=== PATIENT | female | born 1940 | race Caucasian/White ===

== ENCOUNTER 2020-06-13 16:13 | Inpatient (IN) | payer MEDICARE, BC, SELFPAY ==
[2020-06-13] VITALS (17 sets, daily range): BP systolic 130–172; BP diastolic 66–83; PULSE 72–88; RESP 13–22; TEMP 36.4–37; O2SAT 89–98; BMI 19.3
--- NOTE | ~2020-06-13 | XR_ITS ---
XR hip LT 2V w AP pelvis DATE: 06/13/2020 18:45 INDICATION: Fall. Left hip pain TECHNIQUE: AP pelvis. AP and crosstable lateral views of left hip COMPARISON: None FINDINGS: Diffuse osteopenia. Vertebroplasty at L4. Degenerative disc disease of the lumbar spine. The pubic symphysis and sacroiliac joints are intact. No pelvic fracture or bone destruction is evide nt. Compression screw and 20 right of each proximal femur. No recent hip fracture or evidence of dislocat ion. IMPRESSION: Bilateral proximal femoral compression screw and intramedullary radha devices Diffuse osteopenia No recent pelvic fracture or hip fracture or dislocation is evident Reviewed, dictated and finalized at location A.
--- NOTE | ~2020-06-13 | XR_ITS ---
XR chest 1V DATE: 06/13/2020 18:45 INDICATION: Fall. Weakness. TECHNIQUE: AP chest COMPARISON: 08/23/2013 portable AP chest FINDINGS: Severe bilateral glenohumeral osteoarthritis. Diffuse osteopenia. Lateral left seventh rib fracture of undetermined age is suggested. Vertebroplasty at an upper lumbar vertebra. Heart size is within normal range. There is aortic calcification and unfolding. No hilar or mediastin al enlargement. No pulmonary infiltrate or consolidation, pleural effusion or pulmonary vascular amando estion or pneumothorax. IMPRESSION: No active cardiopulmonary disease Reviewed, dictated and finalized at location A.
--- NOTE | ~2020-06-13 | XR_ITS ---
XR chest 1V portable 06/14/2020 02:08 Indication: Pulmonary congestion Procedure: AP portable chest Comparison: Comparison to multiple prior studies sequentially, with oldest reviewed study dated 08/04. Findings: Heart size mildly enlarged. No focal air space disease, pulmonary edema, pleural effusion o r suspected pneumothorax. Mild pulmonary vascular congestion. There are advanced degenerative changes of the glenohumeral joints. No acute osseous abnormality. There is an upper lumbar compression fract ure with vertebroplasty change. Impression: 1: Mild cardiomegaly with pulmonary vascular congestion. Reviewed, dictated and finalized at location A. Impression: 1: Mild cardiomegaly with pulmonary vascular congestion.
--- NOTE | ~2020-06-13 | CT_ITS ---
EXAMINATION: CT cervical spine wo con DATE: 06/13/2020 18:23 INDICATION: Fall. Neck and shoulder pain. TECHNIQUE: Computed tomography (CT) of the cervical spine was performed without intravenous contrast. Automated exposure control and iterative reconstruction technique were employed. Exam dose: 106.59 mGy-cm total exam DLP. COMPARISON: CT facial and cervical spine FINDINGS: Diffuse osteopenia. C1 and C2 are normally aligned and the odontoid process is intact. No recent fracture of the cervical spine is evident. There is moderate chronic anterior wedging of T1, unchanged since 03/01/2017, consistent with old comp ression fracture. There is minimal posterior subluxation at C3-4 and C4-5. There is minimal anterolisthesis at C6-7. There is degenerative change at the apophyseal joints throughout the cervical spine. IMPRESSION: Diffuse osteopenia Chronic compression fracture of T1, stable since 02/21/2017 No recent fracture Degenerative changes Reviewed, dictated and finalized at Location A. Reviewed, dictated and finalized at location A.
--- NOTE | ~2020-06-13 | XR_ITS ---
XR knee LT 3V DATE: 06/13/2020 18:45 INDICATION: Generalized left knee pain TECHNIQUE: 3 views including crosstable lateral COMPARISON: None FINDINGS: There is tricompartment osteoarthritis, most pronounced at the patellofemoral compartment. There is mild chondrocalcinosis. Diffuse osteopenia. No fracture, dislocation, periosteal reaction or bone destruction is evident. Multiple posterior calcified loose bodies are noted at the knee joint. No fracture, dislocation, joint effusion, periosteal reaction or bone destruction is evident. Arterial calcification. IMPRESSION: Tricompartment osteoarthritis Chondrocalcinosis Multiple radiopaque foreign bodies of the knee joint Diffuse osteopenia Reviewed, dictated and finalized at location A.
--- NOTE | ~2020-06-13 | CT_ITS ---
EXAMINATION: CT brain wo con DATE: 06/13/2020 18:23 INDICATION: Fall. Head injury. Neck and shoulder pain. TECHNIQUE: Computed tomography (CT) of the head was performed without intravenous contrast. The mA wa s adjusted according to patient size. Iterative reconstruction technique was employed. Exam dose: 60 5.33 mGy-cm total exam DLP. COMPARISON: 03/01/2017 CT brain FINDINGS: Small chronic left cerebellar hemispheric infarct is stable since 02/21/2017. Cerebral atherosclerosis and chronic small vessel ischemic changes of the cerebral white matter. Moderate central and cortical cerebral and cerebellar atrophy. No intracranial mass lesion or hemorrhage, midline shift or mass effect or recent cerebrovascular acc ident is detected. No subdural or epidural hematoma. No fracture or bone destruction of the cranial vault. Included paranasal sinuses and mastoid air cell s are unremarkable. IMPRESSION: Chronic small left cerebellar hemispheric infarct Cerebral atherosclerosis and chronic small vessel ischemic changes of the cerebral white matter No acute intracranial finding or significant change since 02/21/2017 Reviewed, dictated and finalized at Location A. Reviewed, dictated and finalized at location A. IMPRESSION: Chronic small left cerebellar hemispheric infarct Cerebral atherosclerosis and chronic small vessel ischemic changes of the cereb ral white matter No acute intracranial finding or significant change since 02/21/2017
--- NOTE | 2020-06-13 16:50 | PC.NURSE ---
patient brought to this ED by EMS after reported unwitnessed ground level fall today at the assisted living. see triage notes. c/o right shoulder pain. does have mild bilateral hip pain. no deformities seen. (+)PMS. moves all extremities. patient also reportedly fell yesterday. per EMS patient has slipped out of her chair to the floor both yesterday and today. denies head injury. denies LOC. no wounds seen. unsure patient's baseline mental status. some confusion per EMS. assessments documented. on monitor. side rails up x 2. waiting for further orders from provider.
--- NOTE | 2020-06-13 17:23 | ECG_ITS ---
Measurements Intervals [place] Rate: 70 P: 60 MA: 154 QRS: 28 QRSD: 81 T: 48 QT: 385 QTc: 418 Interpretive Statements SINUS RHYTHM EARLY PRECORDIAL R/S TRANSITION BORDERLINE ST-T WAVE ABNORMALITY- ANT/INF LEADS BASELINE ARTIFACT- I, II, AVR, V4-V6 BORDERLINE ECG Electronically Signed On 06-13-2020 18:18:11 CDT by Jacob Solomon D.O.
--- NOTE | 2020-06-13 17:28 | ED.FALL ---
HPI - Fall General Chief Complaint: Fall Stated Complaint: fall/right shoulder pain Time Seen by Provider: 06/13/20 16:36 Source: patient, family and EMS History of Present Illness HPI Narrative: Patient is 80 years old white female, assisting living, had 3 falls over the last 24 hours. Complaining of left hip pain, Here patient told me that she was trying to get some help, nobody answered her call , she slipped off a chair to go down to the floor and fell.. The above story per patient daughter who came with her. The daughter stating me that patient been weak with a shuffling gait for years, uses a cane for walking, and have very bad bones all over her body severe advanced arthritis of the shoulders and hips, possible shoulder replacement in the future. Patient denies any fever, chills, nausea, vomiting, headache or back pain. Patient had recent kyphoplasty, 2 months ago. Currently denying any back pain. Related Data Home Medications Medication Instructions Recorded Confirmed aripiprazole mg HS 06/13/20 azelastine INTRANASAL BID 06/13/20 camphor-methyl salicyl-menthol patch TOPICAL BID 06/13/20 [Salonpas] carboxymethylcellulose sodium drp 06/13/20 [Refresh] misoprostol mcg DAILY 06/13/20 olanzapine mg HS 06/13/20 pseudoephedrine-guaifenesin tablet PO 06/13/20 [Mucinex D] tramadol mg TID PRN 06/13/20 Allergies Allergy/AdvReac Type Severity Reaction Status Date / Time alendronate sodium Allergy Unknown Unknown Verified 06/13/20 16:59 codeine Allergy Unknown Unknown Verified 06/13/20 16:59 azithromycin Allergy Unknown Verified 06/13/20 17:01 NSAIDS (Non-Steroidal AdvReac Other Verified 06/13/20 17:01 Anti-Inflamma Review of Systems Review of Systems: Narrative: CONSTITUTIONAL: Denies fever, chills, or sweats. EYES: Denies visual changes, redness, or discharge. ENT: Denies rhinorrhea, congestion, sore throat, or otalgia. CARDIOVASCULAR: Denies chest pain, palpitations, or edema. RESPIRATORY: Denies cough or dyspnea. GASTROINTESTINAL: Denies abdominal pain, nausea, vomiting, or diarrhea. GENITOURINARY: Denies dysuria or hematuria. SKIN: Denies rash or itching. MUSCULOSKELETAL: Denies back pain, NEUROLOGIC: Denies headache, numbness, or weakness. PSYCHIATRIC: Denies anxiety or depression. PMFSH Past Medical History Medical History (Updated 06/13/20 @ 18:36 by Zulema Rabago MD) Osteoarthritis Social History Social History (Updated 06/13/20 @ 17:37 by Zulema Rabago MD) Social History: Patient does not smoke or drink or use illicit drugs Second hand tobacco smoke exposure: No Alcohol intake: never Exam Narrative: Exam Narrative: General appearance: Well-developed, well-nourished, looks ill and weak all over. Skin: Normal color Head: Normocephalic, nontraumatic Eyes: Clear conjunctiva ENT: Oropharynx normal, ears normal, nose normal Neck: Supple, nontender Chest and respiratory: Airway patent, no respiratory distress, no accessory muscle use Heart: Regular rate/rhythm Abdomen: Soft, nontender, no organomegaly, quiet bowel sounds Vascular: Normal peripheral pulses, normal capillary refill. Musculoskeletal: Limited range of motion of both shoulders, no deformity or new aches or pain., Slight left hip reduced range of motion Neurologic: Alert and oriented ?3, [employer] is normal as tested, no gross motor deficit Course Course Emergency Course: Stable Consultations Consultation #1: Lillie scott nurse practitioner of the hospitalist Date: 06/13/20 Time: 19:01 Vital Signs Vital signs: Vital Signs Pulse Rate 81 06/13/20 16:22 Respiratory Rate 20 06/13/20 16:22 Pulse Oximetry 90 06/13/20 16:22
[2020-06-13 17:54] LABS: Basophils Percent Auto 0.3 % (0.2-1.2); Hemoglobin 11.7 g/dL (12.0-15.0); Immature Granulocyte Absolute 0.03 K/mm3 (0.00-0.031); Immature Granulocyte Percent A 0.5 % (0-0.5); Lymphocytes Absolute Auto 0.65 K/mm3 (0.9-3.2); Lymphocytes Percent Auto 11.3 % (18.3-44.2); Mean Corpuscular HGB Conc 32.5 g/dl (32-36); Mean Corpuscular Hemoglobin 32.2 pg (26-34); Mean Corpuscular Volume 99.2 fl (80-100); Mean Platelet Volume 9.9 fl (7.4-10.4); Monocytes Absolute Auto 0.7 K/mm3 (0.1-0.6); Monocytes Percent Auto 11.8 % (2.6-8.5); Neutrophils Absolute Auto 4.4 K/mm3 (1.3-6.7); Neutrophils Percent Auto 76.1 % (45.5-73.1); Platelet Count Result 207 k/mm3 (150-375); Red Blood Count 3.63 M/mm3 (4.2-5.4); White Blood Count 5.7 K/mm3 (4.5-10.0)
[2020-06-13] MEDS: SODIUM CHLORIDE 0.9% IV 1,000 ML 999 ML IV CONT (17:54)
[2020-06-13 18:03] LABS: Add Urine Microscopic? YES; Appearance Urine Clear (Clear); Bilirubin Urine Negative (Negative); Blood Urine 1+ (Negative); Color Urine Yellow (Yellow); Glucose Urine UA Negative (Negative); Ketones Urine Negative (Negative); Leukocyte Esterase Ur Negative LEU/UL (Negative); Mucus Urine Rare /lpf; Nitrate Urine Positive (Negative); Protein Urine Negative (Negative); RBC Urine 0-2 /hpf (0-2); Specific Grav Ur 1.013 (1.001-1.035); Squamous Epithelial Cell Urine Rare /hpf (Few); Urobilinogen Urine Negative mg/dL (<2.0); WBC Urine 0-3 /hpf
--- NOTE | 2020-06-13 18:03 | PC.NURSE ---
patient resting on stretcher. Urine collected by straight cath. SL inserted. labs drawn. IVF started. patient repositioned in bed. has depends on. 2 warm blankets given side rails up x 2. family member in room.
[2020-06-13 18:06] LABS: Alanine Aminotransferase 11 U/L (4-35); Alkaline Phosphatase 76 U/L (38-126); Anion Gap 7 mmol/L (8-16); Aspartate Amino Transferase 31 U/L (14-36); Bilirubin,Total 0.3 mg/dL (0.2-1.3); Blood Urea Nitrogen 17 mg/dL (7-17); Calcium 8.8 mg/dL (8.4-10.2); Carbon Dioxide 28 mmol/L (22-30); Chloride 109 mmol/L (98-107); Estimated CRCL calculation 40 ml/min; Estimated Glomerular Filt Rate > 60; Glucose 97 mg/dL (65-105); Sodium 144 mmol/L (137-145)
--- NOTE | 2020-06-13 18:08 | PC.NURSE ---
patient to CT scan now
--- NOTE | 2020-06-13 18:10 | PC.NURSE ---
patient in CT now. family member aware.
--- NOTE | 2020-06-13 18:52 | PC.NURSE ---
patient belongings list done with patient's daughter. patient's dentures, glasses and walker are at her home. daughter is taking jewelry and assistance button with her. clothing given to daughter.
[2020-06-13] MEDS: SODIUM CHLORIDE 0.9% IV 1,000 ML 100 ML IV CONT (20:31)
--- NOTE | 2020-06-13 21:39 | ADMGEN ---
This patient, Heidy Easley, was admitted to Medical Room 241-01 on 06/13/2020 @1950. Patient/family oriented to hospital policies and general routines including ID bracelet, bed and alarms, visiting hours, pain management, procedures, bathroom and other care routines, personal items, smoking policy, room service/diet, and visiting hours. Valuables list has been completed. Information on how to activate the Rapid Response Team has been discussed. Patient/Family are encouraged to report perceived risks to care and to ask questions if they do not understand what they are told or what they should do.
--- NOTE | 2020-06-14 01:46 | PM.IMHP ---
H&P: HPI History of Present Illness Date/Time: 06/14/20 01:46 Chief complaint: Falls, UTI, NH Placement, PT Evaluation Narrative: This is a demented 78 year old female who likely has chronic heart failure as she is treated with lasix presented to the hospital yesterday with a complaint of #3 falls over the past day. She was complianing of left hip pain in the ER. Apparently the patient slipped off of a chair when she was calling out for help and no one came to help her. The patient is currently residing at an assisted living facility and her daughter had verbalized to the ER staff yesterday that she wanted to have the patient placed in a long-term. On my encounter with the patient there is no family present and the patient is only oriented to herself. When I ask her why she is here, she says, I don't know. The patient has no complaints at this time and denies any pain or other symptoms. Overall the patient is a very poor historian. Routine labs demonstrated an abnormal urinalysis and the patient was given a dose of IV antibiotics in the ER. She was started on IV fluids and on my encounter the patient has diffuse bilateral crackles. Review of Systems Review of Systems: All systems reviewed & are unremarkable except as noted in HPI and below PMFSH Past Medical History Medical History Osteoarthritis Social History Social History Social History: Patient does not smoke or drink or use illicit drugs Smoking status: Former smoker Second hand tobacco smoke exposure: No Alcohol intake: unknown Substance use: never Substance use type: does not use Spiritual care concerns: No Comments Past medical/surgical/family/ and social histories are not obtainable from the patient due to her dementia. Meds Home Medications and Allergies Home Medications Medication Instructions Recorded Confirmed Type acetaminophen 1,000 mg PO QID PRN 06/13/20 06/13/20 History aripiprazole [Abilify] 2 mg PO HS 06/13/20 06/13/20 History azelastine 137 mcg INTRANASAL BID 06/13/20 06/13/20 History benzonatate 200 mg PO TID PRN 06/13/20 06/13/20 History bisacodyl [address] DAILY PRN 06/13/20 06/13/20 History camphor-menthol [Biofreeze] 1 applic TOPICAL PRN PRN 06/13/20 06/13/20 History capsaicin [Salonpas-Hot] 1 patch TOPICAL DAILY 06/13/20 06/13/20 History carboxymethylcellulose sodium 1 drp OPHTHALMIC (EYE) BID 06/13/20 06/13/20 History [Refresh Tears] cholecalciferol (vitamin D3) 25 mcg PO DAILY 06/13/20 06/13/20 History [Vitamin D3] clonazepam 0.5 mg PO BID 06/13/20 06/13/20 History dextromethorphan-guaifenesin 1 tablet PO Q12H PRN 06/13/20 06/13/20 History [Mucinex DM] furosemide 40 mg PO DAILY 06/13/20 06/13/20 History latanoprost 1 drp OPHTHALMIC (EYE) HS 06/13/20 06/13/20 History loratadine 10 mg PO DAILY 06/13/20 06/13/20 History methyl salicylate-menthol [Muscle 1 applic TOPICAL BID PRN 06/13/20 06/13/20 History Rub Cream] misoprostol [Cytotec] 200 mcg PO DAILY 06/13/20 06/13/20 History olanzapine [Zyprexa] 2.5 mg PO HS 06/13/20 06/13/20 History tsnncjaok-tphsdteb-fugrp-w.pet 1 applic TOPICAL PRN PRN 06/13/20 06/13/20 History [Hemorrhoidal Cream] tramadol [Ultram] 50 mg PO QID PRN 06/13/20 06/13/20 History Allergies Allergy/AdvReac Type Severity Reaction Status Date / Time alendronate sodium Allergy Unknown Unknown Verified 06/14/20 03:07 codeine Allergy Unknown Unknown Verified 06/14/20 03:07 azithromycin Allergy Unknown Verified 06/14/20 03:07 NSAIDS (Non-Steroidal AdvReac Other Verified 06/14/20 03:07 Anti-Inflamma Vital Signs Vital Signs - 24 hr 06/13/20 16:22 06/13/20 16:26 06/13/20 16:30 Temperature 36.8 C Pulse Rate 81 76 Respiratory Rate 20 22 H 15 Blood Pressure Pulse Oximetry 90 89 L 94 06/13/20 16:31 06/13/20 16:45 06/13/20 16:46 Temperature 37.0 C Pul
[2020-06-14] MEDS: FUROSEMIDE INJ 40 MG/4 ML VIAL IV PUSH (02:43)
[2020-06-14] MEDS: LATANOPROST 0.005% OP SOLN 2.5 ML BTL 1 DROP EACH EYE ×2 (04:42→20:21)
[2020-06-14 06:00] VITALS: BP 150/69; PULSE 69; RESP 22; TEMP 36.9; O2SAT 92
[2020-06-14 07:05] LABS: Thyroid Stimulating Hormone Reflex 0.685 uIU/mL (0.465-4.68)
[2020-06-14 07:21] LABS: Folic Acid 5.7 ng/mL (2.76->20)
[2020-06-14 07:52] LABS: Hematocrit 34.6 % (37.0-47.0); Hemoglobin 10.8 g/dL (12.0-15.0); Mean Corpuscular HGB Conc 31.2 g/dl (32-36); Mean Corpuscular Hemoglobin 31.8 pg (26-34); Mean Corpuscular Volume 101.8 fl (80-100); Mean Platelet Volume 10.3 fl (7.4-10.4); Platelet Count Result 194 k/mm3 (150-375)
[2020-06-14 07:55] LABS: Anion Gap 5 mmol/L (8-16); Blood Urea Nitrogen 14 mg/dL (7-17); CRP 3.9 mg/dL (<1.0); Calcium 8.3 mg/dL (8.4-10.2); Carbon Dioxide 28 mmol/L (22-30); Chloride 109 mmol/L (98-107); Estimated CRCL calculation 46 ml/min; Estimated Glomerular Filt Rate > 60; Glucose 81 mg/dL (65-105); Potassium 3.5 mmol/L (3.4-5.0); Sodium 142 mmol/L (137-145)
[2020-06-14 09:25] VITALS: BMI 10.0
--- NOTE | 2020-06-14 10:59 | PCSTNOTE ---
Bedside Swallow Evaluation This pt was seen for a bedside swallowing evaluation after witnessed coughing on thin liquids (nurse tech reported feeding her thin liquid via cup as she couldn't lift the cup herself). The pt is very weak and moves slowly. She reports that she doesn't have the strength to drink from a straw. She is edentulous but reports that she has dentures at home. She demonstrated Left sided facial weakness and reports that she always has a messy mouth, indicating anterior spillage. She also has poor oral care, limited tongue strength and ROM, and poor labial strength. The pt was seated upright in a chair and given 3ml, 5ml, and uncontrolled thin liquid via spoon and cup. No clinical signs of aspiration were noted. The pt was able to hold the cup and bring it to her mouth, but drank very slowly. Trials of puree were within normal limits but left some oral residue. A cracker was dipped in water to soften it due to her general weakness and lack of teeth; this solid trial was within normal limits but left oral residue. The oral residue could be contributing to her poor oral hygiene. It is recommended that the pt receive an oral diet of puree food (4) and thin liquids (0). The pt will require setup and feeding assistance. This diet may be upgraded if the pt's dentures arrive and her strength improves. The following precautions should be taken when eating/drinking: -no straws -sit upright during and after meals -small bites/sips -check for pocketing food and alternate liquids and solids to clear residue Therapy should focus on the following: -bolus control exercises -tongue ROM exercises -lip strengthening exercises
[2020-06-14] MEDS: CHOLECALCIFEROL 1,000 UNITS TABLET 1000 UNITS PO (12:02)
--- NOTE | 2020-06-14 12:11 | P.PNIM_ITS ---
Progress Note: A&P Assessment and Plan (1) Multiple falls: Code(s): R29.6 - Repeated falls Status: Acute Assessment and Plan: * She likely requires NH placement due to advanced debility and schizophrenia * However, polypharmacy is extant (2 antipsychotics, 2 antihistamines, 1 benzodiazepine, 1 narcotic, 1 diuretic) * A trial of medication reduction is warranted * Monitor status on new regimen (2) Abnormal urinalysis: Code(s): R82.90 - Unspecified abnormal findings in urine Status: Acute Assessment and Plan: * UTI unlikely based on U/a findings * Ceftriaxone started empirically 06/13 * C/s pending (3) Pulmonary congestion: Code(s): R09.89 - Other specified symptoms and signs involving the circulatory and respiratory systems Status: Acute Assessment and Plan: * Clear to exam 06/14 * May have been a consequence of IVF that resolved with IV furosemide (4) Dementia: Qualifiers: Dementia type: unspecified type Dementia behavioral disturbance: without behavioral disturbance Qualified Code(s): F03.90 - Unspecified dementia without behavioral disturbance Code(s): F03.90 - Unspecified dementia without behavioral disturbance Status: Acute Assessment and Plan: * Cognitive impairment is likely a consequence of her schizophrenia and polypharmacy * Clinically she does not have true dementia (5) Hypertension: Qualifiers: Hypertension type: unspecified Qualified Code(s): I10 - Essential (primary) hypertension Code(s): I10 - Essential (primary) hypertension Status: Acute Assessment and Plan: * No prior hx * Possibly due to volume overload and resolved after IV furosemide (6) Schizophrenia: Qualifiers: Schizophrenia type: unspecified Qualified Code(s): F20.9 - Schizophrenia, unspecified Code(s): F20.9 - Schizophrenia, unspecified Status: Acute Assessment and Plan: * Hx of visual and auditory hallucinations, controlled by medication * Paranoid ideation noted (7) Anemia: Code(s): D64.9 - Anemia, unspecified Status: Acute Assessment and Plan: * Decline from previously * B12 low normal range, check MMA * Check stool for blood, iron/tibc (8) Osteoarthritis: Code(s): M19.90 - Unspecified osteoarthritis, unspecified site Status: Acute Assessment and Plan: * Severe with moderately severe pain in right shoulder and associated adhesive capsulitis * Avoid narcotics * Trial of scheduled acetaminophen, PT/OT Subjective Date/time seen: 06/14/20 12:11 Interval history: 06/14: I saw Kt in a vision in 1974 and I've been schizophrenic ever since. But I'm not. My was a son of a bitch and lied about me to my family. Admitted 06/13 due to falling at assisted living. Unable to care for self. No teeth with her. But able to swallow thin liquids and pureed foods. Chronic severe right shoulder pain. Denied cp or sob or edema or syncope. Denied focal weakness or numbness. Denied gi/gu issues or abnormal bleeding. Review of Systems Review of Systems: All systems reviewed & are unremarkable except as noted in HPI and below Exam Narrative: Exam Narrative: HEENT: EOMI, PERRL, sclerae nonicteric, pharyngeal mucosa pink and intact NECK: No JVD, adenopathy, or thyromegaly CHEST: Clear to auscultation. Normal effort. HEART: NL S1/S2, regular, no murmur ABDOMEN: BS+, soft, nonte
--- NOTE | 2020-06-14 12:11 | PM.IMPN ---
Progress Note: A&P Assessment and Plan (1) Multiple falls: Code(s): R29.6 - Repeated falls Status: Acute Assessment and Plan: She likely requires NH placement due to advanced debility and schizophrenia However, polypharmacy is extant (2 antipsychotics, 2 antihistamines, 1 benzodiazepine, 1 narcotic, 1 diuretic) A trial of medication reduction is warranted Monitor status on new regimen (2) Abnormal urinalysis: Code(s): R82.90 - Unspecified abnormal findings in urine Status: Acute Assessment and Plan: UTI unlikely based on U/a findings Ceftriaxone started empirically 06/13 C/s pending (3) Pulmonary congestion: Code(s): R09.89 - Other specified symptoms and signs involving the circulatory and respiratory systems Status: Acute Assessment and Plan: Clear to exam 06/14 May have been a consequence of IVF that resolved with IV furosemide (4) Dementia: Qualifiers: Dementia type: unspecified type Dementia behavioral disturbance: without behavioral disturbance Qualified Code(s): F03.90 - Unspecified dementia without behavioral disturbance Code(s): F03.90 - Unspecified dementia without behavioral disturbance Status: Acute Assessment and Plan: Cognitive impairment is likely a consequence of her schizophrenia and polypharmacy Clinically she does not have true dementia (5) Hypertension: Qualifiers: Hypertension type: unspecified Qualified Code(s): I10 - Essential (primary) hypertension Code(s): I10 - Essential (primary) hypertension Status: Acute Assessment and Plan: No prior hx Possibly due to volume overload and resolved after IV furosemide (6) Schizophrenia: Qualifiers: Schizophrenia type: unspecified Qualified Code(s): F20.9 - Schizophrenia, unspecified Code(s): F20.9 - Schizophrenia, unspecified Status: Acute Assessment and Plan: Hx of visual and auditory hallucinations, controlled by medication Paranoid ideation noted (7) Anemia: Code(s): D64.9 - Anemia, unspecified Status: Acute Assessment and Plan: Decline from previously B12 low normal range, check MMA Check stool for blood, iron/tibc (8) Osteoarthritis: Code(s): M19.90 - Unspecified osteoarthritis, unspecified site Status: Acute Assessment and Plan: Severe with moderately severe pain in right shoulder and associated adhesive capsulitis Avoid narcotics Trial of scheduled acetaminophen, PT/OT Subjective Date/time seen: 06/14/20 12:11 Interval history: 06/14: I saw Kt in a vision in 1974 and I've been schizophrenic ever since. But I'm not. My was a son of a bitch and lied about me to my family. Admitted 06/13 due to falling at assisted living. Unable to care for self. No teeth with her. But able to swallow thin liquids and pureed foods. Chronic severe right shoulder pain. Denied cp or sob or edema or syncope. Denied focal weakness or numbness. Denied gi/gu issues or abnormal bleeding. Review of Systems Review of Systems: All systems reviewed & are unremarkable except as noted in HPI and below Exam Narrative: Exam Narrative: HEENT: EOMI, PERRL, sclerae nonicteric, pharyngeal mucosa pink and intact NECK: No JVD, adenopathy, or thyromegaly CHEST: Clear to auscultation. Normal effort. HEART: NL S1/S2, regular, no murmur ABDOMEN: BS+, soft, nontender, no mass, no bruits EXTREMITIES: No cyanosis, edema, or clubbing NEUROLOGIC: CN intact and symmetric to inspection. MUSCULOSKELETAL: Tone and strength symmetric. Generalized weakness. Right shoulder with severe creps on passive ROM with pain and severely limited ROM. PSYCH: Alert. Oriented to person, place, and time. Inappropriate, somewhat blunted affect. Objective Data Vital Signs Vital Signs: Vital Signs - 24 hr 06/13/20 16:22 06/13/20 16:26 06/13/20 16:30 Temperat
[2020-06-14 14:00] VITALS: BP 137/61; PULSE 93; RESP 20; TEMP 37.6; O2SAT 92
[2020-06-14] MEDS: ACETAMINOPHEN 325 MG TABLET 650 MG PO ×2 (17:06→21:55)
[2020-06-14 20:31] VITALS: BP 150/57; PULSE 76; RESP 16; TEMP 36.6; O2SAT 90
[2020-06-15 03:23] VITALS: PULSE 70; O2SAT 86
[2020-06-15] MEDS: ACETAMINOPHEN 325 MG TABLET 650 MG PO ×2 (03:25→12:54)
[2020-06-15] MEDS: MENTHOL 10% / METHYL SALICYLATE 15% 57 GM TUBE 1 APPLIC TOPICAL (05:25)
[2020-06-15 05:39] VITALS: BP 111/51; PULSE 69; RESP 16; TEMP 36.7; O2SAT 95
[2020-06-15 05:41] LABS: Hematocrit 33.1 % (37.0-47.0); Hemoglobin 10.8 g/dL (12.0-15.0); Mean Corpuscular HGB Conc 32.6 g/dl (32-36); Mean Corpuscular Hemoglobin 31.7 pg (26-34); Mean Corpuscular Volume 97.1 fl (80-100); Mean Platelet Volume 10.1 fl (7.4-10.4); Platelet Count Result 191 k/mm3 (150-375); Red Blood Count 3.41 M/mm3 (4.2-5.4); Red Cell Distribution Width 12.7 % (11.5-14.5); White Blood Count 3.7 K/mm3 (4.5-10.0)
[2020-06-15 06:16] LABS: Iron 29 ug/dL (37-170)
[2020-06-15 06:18] LABS: Potassium 3.3 mmol/L (3.4-5.0)
[2020-06-15 06:21] LABS: Anion Gap 6 mmol/L (8-16); Blood Urea Nitrogen 14 mg/dL (7-17); Calcium 8.1 mg/dL (8.4-10.2); Carbon Dioxide 29 mmol/L (22-30); Chloride 107 mmol/L (98-107); Estimated CRCL calculation 53 ml/min; Estimated Glomerular Filt Rate > 60; Glucose 84 mg/dL (65-105); Sodium 142 mmol/L (137-145)
[2020-06-15 06:26] LABS: Percent Iron Saturation 12 % (20-50)
[2020-06-15] MEDS: CHOLECALCIFEROL 1,000 UNITS TABLET 1000 UNITS PO (08:35)
[2020-06-15] MEDS: CYANOCOBALAMIN INJ 1,000 MCG/ML VIAL 1000 MCG IM (08:39)
--- NOTE | 2020-06-15 09:33 | PCOTNOTE ---
Patient refused therapy, stating I just fell a couple days ago and need some time to recuperate.
[2020-06-15] MEDS: IRON SUCROSE COMPLEX 100 MG in SODIUM CHLORIDE 0.9% IV 50 ML 220 MG IVPB (10:03)
[2020-06-15 14:00] VITALS: BP 140/56; PULSE 75; RESP 16; TEMP 36.9; O2SAT 92
[2020-06-15 14:08] LABS: SARS-CoV-2 RNA PCR Positive
--- NOTE | 2020-06-15 14:22 | PM.IMPN ---
Progress Note: A&P Assessment and Plan (1) Multiple falls: Code(s): R29.6 - Repeated falls Status: Acute Assessment and Plan: She likely requires NH placement due to advanced debility and schizophrenia However, polypharmacy is extant (2 antipsychotics, 2 antihistamines, 1 benzodiazepine, 1 narcotic, 1 diuretic) A trial of medication reduction is warranted Monitor status on new regimen 06/15/20 14:22 Patient is 80 year old female resident of [facility] patient had slipped off her chair and on the floor was brought to the emergency department for further evaluation, patient with history of schizophrenia on several antipsychotic medication, patient is a very poor historian unable to provide any review of symptoms, is alert to herself, most likely her symptoms are stemming from polypharmacy, patient is quite anemic most likely secondary iron deficiency anemia as well as low vitamin B12, stool Hemoccult is pending, will give the patient Venofer 100 mg time 1, and will treat the patient for low vitamin B12, will have a PT OT evaluate the, patient family would like agree present to nursing as patient is not able to take care of herself. Although patient does not have any respiratory symptoms however patient is positive for COVID-19. we will place her under isolation and droplet precaution. currently patient has no fever and only required 1 L of oxygen will continue to monitor. (2) Abnormal urinalysis: Code(s): R82.90 - Unspecified abnormal findings in urine Status: Acute Assessment and Plan: patient clinically stable and was not started on any antibiotic. (3) Pulmonary congestion: Code(s): R09.89 - Other specified symptoms and signs involving the circulatory and respiratory systems Status: Acute Assessment and Plan: Clear to exam 06/14 May have been a consequence of IVF that resolved with IV furosemide (4) Dementia: Qualifiers: Dementia type: unspecified type Dementia behavioral disturbance: without behavioral disturbance Qualified Code(s): F03.90 - Unspecified dementia without behavioral disturbance Code(s): F03.90 - Unspecified dementia without behavioral disturbance Status: Acute Assessment and Plan: Cognitive impairment is likely a consequence of her schizophrenia and polypharmacy Clinically she does not have true dementia (5) Hypertension: Qualifiers: Hypertension type: unspecified Qualified Code(s): I10 - Essential (primary) hypertension Code(s): I10 - Essential (primary) hypertension Status: Acute Assessment and Plan: No prior hx Possibly due to volume overload and resolved after IV furosemide (6) Schizophrenia: Qualifiers: Schizophrenia type: unspecified Qualified Code(s): F20.9 - Schizophrenia, unspecified Code(s): F20.9 - Schizophrenia, unspecified Status: Acute Assessment and Plan: Hx of visual and auditory hallucinations, controlled by medication Paranoid ideation noted (7) Anemia: Code(s): D64.9 - Anemia, unspecified Status: Acute Assessment and Plan: Decline from previously B12 low normal range, check MMA Check stool for blood, iron/tibc (8) Osteoarthritis: Code(s): M19.90 - Unspecified osteoarthritis, unspecified site Status: Acute Assessment and Plan: Severe with moderately severe pain in right shoulder and associated adhesive capsulitis Avoid narcotics Trial of scheduled acetaminophen, PT/OT (9) COVID-19: Code(s): U07.1 - COVID-19 Status: Acute Assessment and Plan: currently patient is clinically stable does not show any obese sinus symptoms COVID-19, does not have any fever and only requiring 1 L of oxygen will continue to monitor and further recommendation to follow, will transfer patient to [place] and place the patient under isolation and droplet precaution
[2020-06-15 14:25] VITALS: BMI 19.3
[2020-06-15 16:00] VITALS: BP 150/54; PULSE 76; RESP 20; TEMP 37.1; O2SAT 95
[2020-06-15 20:50] VITALS: BP 142/63; PULSE 73; RESP 18; TEMP 36.6; O2SAT 93
[2020-06-15] MEDS: LATANOPROST 0.005% OP SOLN 2.5 ML BTL 1 DROP EACH EYE (21:22)
[2020-06-16] VITALS (7 sets, daily range): BP systolic 113–176; BP diastolic 53–82; PULSE 72–92; RESP 18–20; TEMP 36.7–38; O2SAT 91–97
[2020-06-16] MEDS: ACETAMINOPHEN 325 MG TABLET 650 MG PO ×3 (00:49→21:21)
[2020-06-16] MEDS: CHOLECALCIFEROL 1,000 UNITS TABLET 1000 UNITS PO (08:10)
[2020-06-16 10:14] LABS: Hematocrit 39.2 % (37.0-47.0); Hemoglobin 12.8 g/dL (12.0-15.0); Mean Corpuscular HGB Conc 32.7 g/dl (32-36); Mean Corpuscular Hemoglobin 32.5 pg (26-34); Mean Corpuscular Volume 99.5 fl (80-100); Mean Platelet Volume 10.2 fl (7.4-10.4); Platelet Count Result 185 k/mm3 (150-375); Red Blood Count 3.94 M/mm3 (4.2-5.4); Red Cell Distribution Width 12.6 % (11.5-14.5); White Blood Count 3.4 K/mm3 (4.5-10.0)
[2020-06-16 10:31] LABS: Alanine Aminotransferase 13 U/L (4-35); Albumin Level 3.6 g/dL (3.5-5.1); Alkaline Phosphatase 72 U/L (38-126); Anion Gap 6 mmol/L (8-16); Aspartate Amino Transferase 40 U/L (14-36); Bilirubin,Total 0.5 mg/dL (0.2-1.3); Blood Urea Nitrogen 11 mg/dL (7-17); CRP 2.2 mg/dL (<1.0); Calcium 8.6 mg/dL (8.4-10.2); Carbon Dioxide 33 mmol/L (22-30); Chloride 104 mmol/L (98-107); Estimated CRCL calculation 53 ml/min; Estimated Glomerular Filt Rate > 60; Glucose 92 mg/dL (65-105); Magnesium 2.2 mg/dL (1.6-2.3); Potassium 4.1 mmol/L (3.4-5.0); Sodium 143 mmol/L (137-145)
--- NOTE | 2020-06-16 14:03 | PCSTNOTE ---
The patient treatment was not able to be completed on 06/16/20 as patient exhibits poor ability to participate in direct, active oral motor exercises and will be discharged from direct ST services with physician permission.
--- NOTE | 2020-06-16 17:23 | PM.IMPN ---
Progress Note: A&P Assessment and Plan (1) Multiple falls: Code(s): R29.6 - Repeated falls Status: Acute Assessment and Plan: She likely requires NH placement due to advanced debility and schizophrenia However, polypharmacy is extant (2 antipsychotics, 2 antihistamines, 1 benzodiazepine, 1 narcotic, 1 diuretic) A trial of medication reduction is warranted Monitor status on new regimen Patient is 80 year old female [facility] patient had slipped off her chair and on the floor was brought to the emergency department for further evaluation, patient with history of schizophrenia on several antipsychotic medication, patient is a very poor historian unable to provide any review of symptoms, is alert to herself, most likely her symptoms are stemming from polypharmacy, patient is quite anemic most likely secondary iron deficiency anemia as well as low vitamin B12, stool Hemoccult is pending, will give the patient Venofer 100 mg time 1, and will treat the patient for low vitamin B12, will have a PT OT evaluate the, patient family would like agree present to nursing as patient is not able to take care of herself. Although patient does not have any respiratory symptoms however patient is positive for COVID-19. we will place her under isolation and droplet precaution. currently patient has no fever and only required 1 L of oxygen will continue to monitor. 06/16/20 17:23 currently patient is clinically stable does not show any obvious signs or symptoms COVID-19, does not have any fever and only requiring 1 L of oxygen, will reduce her oxygen to room air and monitor the patient does not have fever but is not require any oxygen 2 days discharge the patient back to nursing, patient with anemia most likely secondary to iron deficiency as well as vitamin B12 patient was supplement, once clinically stable patient will benefit from PT OT (2) Abnormal urinalysis: Code(s): R82.90 - Unspecified abnormal findings in urine Status: Acute Assessment and Plan: patient clinically stable and was not started on any antibiotic. (3) Pulmonary congestion: Code(s): R09.89 - Other specified symptoms and signs involving the circulatory and respiratory systems Status: Acute Assessment and Plan: Clear to exam 06/14 May have been a consequence of IVF that resolved with IV furosemide (4) Dementia: Qualifiers: Dementia type: unspecified type Dementia behavioral disturbance: without behavioral disturbance Qualified Code(s): F03.90 - Unspecified dementia without behavioral disturbance Code(s): F03.90 - Unspecified dementia without behavioral disturbance Status: Acute Assessment and Plan: Cognitive impairment is likely a consequence of her schizophrenia and polypharmacy Clinically she does not have true dementia (5) Hypertension: Qualifiers: Hypertension type: unspecified Qualified Code(s): I10 - Essential (primary) hypertension Code(s): I10 - Essential (primary) hypertension Status: Acute Assessment and Plan: No prior hx Possibly due to volume overload and resolved after IV furosemide (6) Schizophrenia: Qualifiers: Schizophrenia type: unspecified Qualified Code(s): F20.9 - Schizophrenia, unspecified Code(s): F20.9 - Schizophrenia, unspecified Status: Acute Assessment and Plan: Hx of visual and auditory hallucinations, controlled by medication Paranoid ideation noted (7) Anemia: Code(s): D64.9 - Anemia, unspecified Status: Acute Assessment and Plan: Decline from previously B12 low normal range, check MMA Check stool for blood, iron/tibc (8) Osteoarthritis: Code(s): M19.90 - Unspecified osteoarthritis, unspecified site Status: Acute Assessment and Plan: Severe with moderately severe pain in right shoulder and associated adhesive capsu
--- NOTE | 2020-06-16 19:27 | PC.NURSE ---
The sister of this patient was called back and was updated about her sisters current status and care for the day. All questions answered verbalized by the sister Renee.
[2020-06-16] MEDS: LATANOPROST 0.005% OP SOLN 2.5 ML BTL 1 DROP EACH EYE (20:38)
[2020-06-17] VITALS (8 sets, daily range): BP systolic 104–175; BP diastolic 55–64; PULSE 66–84; RESP 16–20; TEMP 36.4–37.2; O2SAT 90–94
--- NOTE | 2020-06-17 07:14 | PCOTNOTE ---
OT treatment unable to be completed 06/16/20.
[2020-06-17] MEDS: CHOLECALCIFEROL 1,000 UNITS TABLET 1000 UNITS PO (08:16)
[2020-06-17] MEDS: MENTHOL 10% / METHYL SALICYLATE 15% 57 GM TUBE 1 APPLIC TOPICAL ×2 (08:25→19:56)
[2020-06-17] MEDS: ACETAMINOPHEN 325 MG TABLET 650 MG PO ×2 (08:25→19:56)
--- NOTE | 2020-06-17 11:28 | PCSTNOTE ---
Speech Pathologist spoke with Dr. Escobedo who requested Speech Therapy to continue to ensure appropriate diet consistency and to attempt oral motor exercises for swallowing if indicated. Therapist agreed to continue ST and patient was seen this morning.
--- NOTE | 2020-06-17 12:20 | PCDIET ---
Nutrition Follow-Up Complete: Nutrition Diagnosis: Suboptimal oral intake related to decreased appetite as evidenced by intakes averaging around 30% of meals since admission. Nutrition Goal: Patient to consume 50% of meals/supplements or greater. Goal in progress. Patient consumed 30-50% of meals on 06/16/20. Spoke with nurse aid who reports patient consumed majority of breakfast tray today. Nurse aid to notify RD if patient does not consume Thrive supplement. Recommend continuing pureed diet, but would liberalize to regular/no restrictions to maximize intake. Last recorded weight is 51 kg. Recommend obtaining new weight. Bowel Motility: No documented BM as of yet. Dulcolax ordered prn. Labs Reviewed: Cr (0.6) Meds Noted: Vitamin D Additional Notes: No documented skin breakdown. Nutrition Monitoring and Evaluation: Follow up every 5 days.
[2020-06-17] MEDS: traMADol HCL (*CRX) 50 MG TABLET PO (14:32)
[2020-06-17 14:47] LABS: Methylmalonic Acid 223 nmol/L (87-318)
--- NOTE | 2020-06-17 16:06 | P.PNIM_ITS ---
Progress Note: A&P Assessment and Plan (1) Multiple falls: Code(s): R29.6 - Repeated falls Status: Acute Assessment and Plan: * She likely requires NH placement due to advanced debility and schizophrenia * However, polypharmacy is extant (2 antipsychotics, 2 antihistamines, 1 benzodiazepine, 1 narcotic, 1 diuretic) * A trial of medication reduction is warranted * Monitor status on new regimen Patient is 80 year old female [facility] patient had slipped off her chair and on the floor was brought to the emergency department for further evaluation, patient with history of schizophrenia on several antipsychotic medication, patient is a very poor historian unable to provide any review of symptoms, is alert to herself, most likely her symptoms are stemming from polypharmacy, patient is quite anemic most likely secondary iron deficiency anemia as well as low vitamin B12, stool Hemoccult is pending, will give the patient Venofer 100 mg time 1, and will treat the patient for low vitamin B12, will have a PT OT evaluate the, patient family would like agree present to nursing as patient is not able to take care of herself. Although patient does not have any respiratory symptoms however patient is positive for COVID-19. we will place her under isolation and droplet precaution. currently patient has no fever and only required 1 L of oxygen will continue to monitor. 06/17/20 16:06 currently patient is clinically stable does not show any obvious signs or symptoms COVID-19, does not have any fever and only requiring 1 L of oxygen, will reduce her oxygen to room air and monitor, If the patient does not have fever and is not requiring any oxygen 2 days discharge the patient back to nursing possibly on 06/18, patient with anemia most likely secondary to iron deficiency as well as vitamin B12 patient was supplement, once clinically stable patient will benefit from PT OT. will continue to monitor and reassess her tomorrow and plan. (2) Abnormal urinalysis: Code(s): R82.90 - Unspecified abnormal findings in urine Status: Acute Assessment and Plan: * patient clinically stable and was not started on any antibiotic. (3) Pulmonary congestion: Code(s): R09.89 - Other specified symptoms and signs involving the circulatory and respiratory systems Status: Acute Assessment and Plan: * Clear to exam on 06/14 * May have been a consequence of IVF that resolved with IV furosemide (4) Dementia: Qualifiers: Dementia type: unspecified type Dementia behavioral disturbance: without behavioral disturbance Qualified Code(s): F03.90 - Unspecified dementia without behavioral disturbance Code(s): F03.90 - Unspecified dementia without behavioral disturbance Status: Acute Assessment and Plan: * Cognitive impairment is likely a consequence of her schizophrenia and polypharmacy * Clinically she does not have true dementia (5) Hypertension: Qualifiers: Hypertension type: unspecified Qualified Code(s): I10 - Essential (primary) hypertension Code(s): I10 - Essential (primary) hypertension Status: Acute Assessment and Plan: * No prior hx * Possibly due to volume overload and resolved after IV furosemide (6) Schizophrenia: Qualifiers: Schizophrenia type: unspecified Qualified Code(s): F20.9 - S chizophrenia, unspecified Code(s): F20.9 - Schizophrenia, unspecified Status: Acute Assessment and Plan: * Hx of visual and auditory hallucinations, controlled by medication * Paranoid ideation noted
--- NOTE | 2020-06-17 16:44 | PM.DS ---
DS: Admitting Diagnosis Admitting Diagnosis Admitting Diagnosis: Falls, UTI, NH Placement, PT Evaluation DS: Discharge Diagnosis Discharge Diagnosis (1) Multiple falls: Code(s): R29.6 - Repeated falls Status: Acute Assessment and Plan: She likely requires NH placement due to advanced debility and schizophrenia However, polypharmacy is extant (2 antipsychotics, 2 antihistamines, 1 benzodiazepine, 1 narcotic, 1 diuretic) A trial of medication reduction is warranted Monitor status on new regimen Patient is 80 year old female [facility] patient had slipped off her chair and on the floor was brought to the emergency department for further evaluation, patient with history of schizophrenia on several antipsychotic medication, patient is a very poor historian unable to provide any review of symptoms, is alert to herself, most likely her symptoms are stemming from polypharmacy, patient is quite anemic most likely secondary iron deficiency anemia as well as low vitamin B12, stool Hemoccult is pending, will give the patient Venofer 100 mg time 1, and will treat the patient for low vitamin B12, will have a PT OT evaluate the, patient family would like agree present to nursing as patient is not able to take care of herself. Although patient does not have any respiratory symptoms however patient is positive for COVID-19. we will place her under isolation and droplet precaution. currently patient has no fever and only required 1 L of oxygen will continue to monitor. 06/17/20 16:06 currently patient is clinically stable does not show any obvious signs or symptoms COVID-19, does not have any fever and only requiring 1 L of oxygen, will reduce her oxygen to room air and monitor, If the patient does not have fever and is not requiring any oxygen 2 days discharge the patient back to nursing possibly on 06/18, patient with anemia most likely secondary to iron deficiency as well as vitamin B12 patient was supplement, once clinically stable patient will benefit from PT OT. will continue to monitor and reassess her tomorrow and plan. (2) Abnormal urinalysis: Code(s): R82.90 - Unspecified abnormal findings in urine Status: Acute Assessment and Plan: patient clinically stable and was not started on any antibiotic. (3) Pulmonary congestion: Code(s): R09.89 - Other specified symptoms and signs involving the circulatory and respiratory systems Status: Acute Assessment and Plan: Clear to exam on 06/14 May have been a consequence of IVF that resolved with IV furosemide (4) Dementia: Qualifiers: Dementia type: unspecified type Dementia behavioral disturbance: without behavioral disturbance Qualified Code(s): F03.90 - Unspecified dementia without behavioral disturbance Code(s): F03.90 - Unspecified dementia without behavioral disturbance Status: Acute Assessment and Plan: Cognitive impairment is likely a consequence of her schizophrenia and polypharmacy Clinically she does not have true dementia (5) Hypertension: Qualifiers: Hypertension type: unspecified Qualified Code(s): I10 - Essential (primary) hypertension Code(s): I10 - Essential (primary) hypertension Status: Acute Assessment and Plan: No prior hx Possibly due to volume overload and resolved after IV furosemide (6) Schizophrenia: Qualifiers: Schizophrenia type: unspecified Qualified Code(s): F20.9 - Schizophrenia, unspecified Code(s): F20.9 - Schizophrenia, unspecified Status: Acute Assessment and Plan: Hx of visual and auditory hallucinations, controlled by medication Paranoid ideation noted (7) Anemia: Code(s): D64.9 - Anemia, unspecified Status: Acute Assessment and Plan: Decline from previously B12 low normal range, check MMA Check stool for blood, iron/tibc (8) Osteoarthrit
[2020-06-17] MEDS: LATANOPROST 0.005% OP SOLN 2.5 ML BTL 1 DROP EACH EYE (21:22)
[2020-06-18] VITALS: BP 127/66; PULSE 73; RESP 20; TEMP 36.7; O2SAT 95
[2020-06-18] MEDS: traMADol HCL (*CRX) 50 MG TABLET PO ×2 (01:47→18:27)
[2020-06-18 04:00] VITALS: BP 155/84; PULSE 78; RESP 20; TEMP 36.4; O2SAT 92
[2020-06-18 08:00] VITALS: BP 133/69; PULSE 73; RESP 18; TEMP 36.3; O2SAT 99
--- NOTE | 2020-06-18 08:24 | PCOTNOTE ---
OT treatment unable to be completed 06/17/20. Will continue with plan of care.
[2020-06-18] MEDS: CHOLECALCIFEROL 1,000 UNITS TABLET 1000 UNITS PO (08:56)
[2020-06-18 12:00] VITALS: BP 149/64; PULSE 78; RESP 16; TEMP 36.3; O2SAT 91
--- NOTE | 2020-06-18 15:37 | PC.NURSE ---
1515 attempted tp call report to [facility] called three times and was put on hold, they stated they have a new phone system, and having trouble with it all 3 calls were disconnected.
[2020-06-18 16:00] VITALS: BP 111/64; PULSE 84; RESP 18; TEMP 35.9; O2SAT 92
--- NOTE | 2020-06-18 16:10 | PC.NURSE ---
[address] to call [facility] and they did not answer phone, will try to call report again prior to discharge
--- NOTE | 2020-06-18 16:28 | PC.NURSE ---
Zaida called report given to
== END 2020-06-18 18:50 | DRG 56 ==
LOC: ANHED 19:16 → ANH2MED 19:27 → ANH3MEDSUR 06-17 07:51 → ANH2MED 06-19 13:44 → ANH3MEDSUR 06-19 13:44
PROVIDERS: Family Medicine; Internal Medicine; Admitting Provider Internal Medicine; Emergency Provider Emergency Medicine; PCP Family Medicine Adolescent Medicine; Visit Provider Family Medicine
DX: G31.84 Mild cognitive impairment of uncertain or unknown etiology (principal); U07.1 COVID-19; F20.0 Paranoid schizophrenia; T50.995A Adverse effect of other drugs, medicaments and biological substances, initial encounter; W01.0XXA Fall on same level from slipping, tripping and stumbling without subsequent striking against object, initial encounter; R53.81 Other malaise; M19.90 Unspecified osteoarthritis, unspecified site; R09.89 Other specified symptoms and signs involving the circulatory and respiratory systems; I11.0 Hypertensive heart disease with heart failure; I50.9 Heart failure, unspecified; R82.90 Unspecified abnormal findings in urine; D51.9 Vitamin B12 deficiency anemia, unspecified; D50.9 Iron deficiency anemia, unspecified; R29.6 Repeated falls; Z87.891 Personal history of nicotine dependence
CPT/HCPCS: 36415; 51701; 70450; 71045; 72125; 73502; 73562; 80048; 80053; 81001; 82607; 82746; 83540; 83550; 83735; 83921; 84443; 85025; 85027; 86140; 87635; 92507; 92526; 92610; 93005; 96361; 96365; 96372; 96375; 97110; 97116; 97162; 97166; 97530; 97535; 99285; A9270; C9803; G0378; J0131; J0696; J1756; J1940; J3420; J7030; U0003

== ENCOUNTER 2020-06-26 09:55 | Inpatient (IN) | payer MEDICARE, BC, SELFPAY ==
[2020-06-26] VITALS (12 sets, daily range): BP systolic 107–157; BP diastolic 53–80; PULSE 66–90; RESP 14–17; TEMP 36.3–37; O2SAT 92–100; BMI 18.6
--- NOTE | ~2020-06-26 | XR_ITS ---
XR chest 1V portable 06/26/2020 11:15 Indication: Shortness of breath. Covid-19 Procedure: AP portable chest Comparison: 06/14/2020 Findings: There are developing peripheral infiltrates of the lower lung zones. Heart size normal for technique. No pleural effusion or pneumothorax. There is atherosclerosis. Impression: 1: Developing peripheral infiltrates of the lower lung zones, compatible with pneumonia. Reviewed, dictated and finalized at location B. Impression: 1: Developing peripheral infiltrates of the lower lung zones, compatible with p neumonia.
--- NOTE | ~2020-06-26 | CT_ITS ---
EXAMINATION: CTA chest PE protocol DATE: 06/26/2020 12:13 INDICATION: Shortness of breath. TECHNIQUE: Computed tomography angiography (CTA) of the chest was performed with 200 mL Omnipaque-350 intravenous contrast timed to evaluate the pulmonary arteries. Coronal maximum intensity projection 3D-reconstructions were created by the technologist. Automated exposure control and iterative reconst ruction technique were employed. The dose-length product was 426 mGy-cm. COMPARISON: Chest CT 06/17/2012 FINDINGS: The lungs demonstrate motion artifact. There is mucous plugging in right lower lobe. There is mild dependent atelectasis bilaterally. The heart size is normal. There are coronary artery calcif ications. There are acute pulmonary emboli in right lower lobe and right middle lobe. There is right hilar lymphadenopathy with the largest node measuring 1.7 x 1.3 cm. There is calcified atherosclerosi s of the aorta and many of the other arteries. 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 There are chronic burst fractures of L1 and L2 with changes of vertebroplast y at L2. There are chronic compression fractures of T6 and T12. There is moderate thoracic spondylosi s. IMPRESSION: 1. Acute pulmonary emboli in right lower lobe and right middle lobe. I called this result to Vern stuart. 2. Mucous plugging in right lower lobe. 3. Right hilar lymphadenopathy, which may be reactive. Reviewed, dictated and finalized at location A. IMPRESSION: 1. Acute pulmonary emboli in right lower lobe and right middle lobe. I called this result to Vern Meyer. 2. Mucous plugging in right lower lobe. 3. Right hilar lymphadenopathy, which may be reactive.
--- NOTE | 2020-06-26 10:05 | ECG_ITS ---
Measurements Intervals [place] Rate: 79 P: 46 MO: 140 QRS: -4 QRSD: 79 T: 29 QT: 354 QTc: 407 Interpretive Statements SINUS RHYTHM LOW QRS VOLTAGE IN PRECORDIAL LEADS BORDERLINE T WAVE ABNORMALITY- ANTEROLAT/INF LEADS BASELINE ARTIFACT- I, II, III, AVR, AVL, AVF, V1-V6 BORDERLINE ECG Electronically Signed On 06-26-2020 10:47:04 CDT by Jacob Solomon D.O.
[2020-06-26 10:21] LABS: Alveolar/Arterial O2 Gradient 422.2 mmHg; Fractional Inspired Oxygen 80 %; HCO3 ABG 26.8 mEq/l (22.0-26.0); Oxygen Content ABG 17.1 %vol (16.0-22.0); Oxygen Saturation ABG 97.8 % (95.0-100.0); Oxyhemoglobin 96.7 % THb (90.0-100.0); PCO2 ABG 42.9 mmHg (35.0-45.0); PO2 ABG 103.2 mmHg (80.0-100.0); PO2 FiO2 Ratio Arterial Blood 1.29 %; Total Hemoglobin 12.5 g/dL (12.0-18.0); pH ABG 7.414 (7.350-7.450)
[2020-06-26 10:22] LABS: Device NON-REBREATHER MASK; Modified Allen's Test Pass; Site Drawn RIGHT RADIAL
[2020-06-26 10:37] LABS: Basophils Percent Auto 0.4 % (0.2-1.2); Eosinophils Absolute Auto 0.1 K/mm3 (0-0.3); Eosinophils Percent Auto 1.1 % (0-4.4); Hematocrit 36.8 % (37.0-47.0); Hemoglobin 11.9 g/dL (12.0-15.0); Immature Granulocyte Absolute 0.04 K/mm3 (0.00-0.031); Immature Granulocyte Percent A 0.6 % (0-0.5); Lymphocytes Absolute Auto 1.17 K/mm3 (0.9-3.2); Lymphocytes Percent Auto 16.2 % (18.3-44.2); Mean Corpuscular HGB Conc 32.3 g/dl (32-36); Mean Corpuscular Volume 95.8 fl (80-100); Mean Platelet Volume 9.7 fl (7.4-10.4); Monocytes Absolute Auto 0.8 K/mm3 (0.1-0.6); Monocytes Percent Auto 11.4 % (2.6-8.5); Neutrophils Absolute Auto 5.1 K/mm3 (1.3-6.7); Neutrophils Percent Auto 70.3 % (45.5-73.1); Platelet Count Result 298 k/mm3 (150-375); Red Blood Count 3.84 M/mm3 (4.2-5.4); Red Cell Distribution Width 12.3 % (11.5-14.5); White Blood Count 7.2 K/mm3 (4.5-10.0)
[2020-06-26 10:46] LABS: INR 1.1; Prothrombin Time 13.5 Seconds (11.1-14.7)
[2020-06-26 10:47] LABS: Partial Thromboplastin Time 29.9 SECONDS (22.3-36.8)
[2020-06-26 10:49] LABS: Lactic Acid Reflex 0.9 mmol/L (0.7-2.1)
[2020-06-26 10:49] LABS: Alanine Aminotransferase 9 U/L (4-35); Albumin Level 3.8 g/dL (3.5-5.1); Alkaline Phosphatase 106 U/L (38-126); Anion Gap 10 mmol/L (8-16); Aspartate Amino Transferase 19 U/L (14-36); Bilirubin,Total 0.8 mg/dL (0.2-1.3); Blood Urea Nitrogen 26 mg/dL (7-17); Calcium 8.7 mg/dL (8.4-10.2); Carbon Dioxide 31 mmol/L (22-30); Chloride 100 mmol/L (98-107); Estimated Glomerular Filt Rate 48; Glucose 91 mg/dL (65-105); Potassium 3.4 mmol/L (3.4-5.0); Sodium 141 mmol/L (137-145)
--- NOTE | 2020-06-26 10:53 | ED.GENADULT ---
HPI - General Adult General Chief complaint: Shortness of Breath/Dyspnea Stated complaint: low o2 sats - covid + Time Seen by Provider: 06/26/20 10:04 History of Present Illness HPI narrative: Patient is a 80-year-old female who presents to the ER with shortness of breath. Patient was recently diagnosed with Covid 19. This morning she was found to have oxygen saturation in the 70s. She was placed on oxygen by EMS and brought to our facility. Patient has no chest pain. Denies productive cough. correction concerned about aspiration but patient reports she has had no food today to aspirate on. No lower extremity swelling. Versus history of CHF. Related Data Home Medications Medication Instructions Recorded Confirmed Hemorrhoidal Cream 1 applic TOPICAL PRN PRN 06/13/20 06/26/20 Mucinex DM 1 tablet PO Q12H PRN 06/13/20 06/26/20 acetaminophen 1,000 mg PO Q6H PRN 06/13/20 06/26/20 aripiprazole [Abilify] 2 mg PO HS 06/13/20 06/26/20 azelastine 137 mcg INTRANASAL BID 06/13/20 06/26/20 bisacodyl 10 mg WI DAILY PRN 06/13/20 06/26/20 camphor-menthol 1 applic TOPICAL PRN PRN 06/13/20 06/26/20 capsaicin [Salonpas-Hot] 1 patch TOPICAL DAILY 06/13/20 06/26/20 cholecalciferol (vitamin D3) 25 mcg PO DAILY 06/13/20 06/26/20 [Vitamin D3] clonazepam 0.5 mg PO Q12H 06/13/20 06/26/20 furosemide 40 mg PO DAILY 06/13/20 06/26/20 latanoprost 1 drp OPHTHALMIC (EYE) HS 06/13/20 06/26/20 loratadine 10 mg PO DAILY 06/13/20 06/26/20 methyl salicylate-menthol 1 applic TOPICAL BID PRN 06/13/20 06/26/20 misoprostol [Cytotec] 200 mcg PO DAILY 06/13/20 06/26/20 olanzapine [Zyprexa] 2.5 mg PO HS 06/13/20 06/26/20 tramadol 50 mg PO Q6H PRN 06/26/20 06/26/20 Allergies Allergy/AdvReac Type Severity Reaction Status Date / Time alendronate sodium Allergy Unknown Unknown Verified 06/14/20 03:07 codeine Allergy Unknown Unknown Verified 06/14/20 03:07 azithromycin Allergy Unknown Verified 06/14/20 03:07 NSAIDS (Non-Steroidal AdvReac Other Verified 06/14/20 03:07 Anti-Inflamma Review of Systems Review of Systems: ROS unobtainable: Yes unobtainable due to mental status PMFSH Past Medical History Medical History (Updated 06/26/20 @ 17:50 by Eddie Glass MD) Anxiety COVID-19 Dementia Depression Duodenal ulcer Hypertension Osteoarthritis Schizophrenia Surgical History Surgical History (Updated 06/26/20 @ 11:01 by Eddie Glass MD) H/O section History of hip surgery Hx of appendectomy Social History Social History Social History: Patient does not smoke or drink or use illicit drugs Smoking status: Former smoker Second hand tobacco smoke exposure: No Alcohol intake: unknown Substance use: unknown Substance use type: does not use Gender identity (if verbalized by the patient): Female Spiritual care concerns: No Exam Narrative: Exam Narrative: GENERAL: Chronically ill-appearing, well-nourished, and in no acute distress. HEAD: Normocephalic, atraumatic. CHEST: Bilateral rales/squeaks. Mild respiratory distress. HEART: Regular rate and rhythm. Normal peripheral pulses. ABDOMEN: Soft, nontender, nondistended. EXTREMITIES: Normal range of motion. 1+ edema. SKIN: Warm, dry, no rash. NEURO: Alert and oriented x2. PSYCH: Normal mood and affect. Course Course Emergency Course: Admit to hospitalist service. Heparin started for treatment of pulmonary embolism. No evidence of pneumonia so antibiotics not ordered. Patient will be started Decadron given profound hypoxia with small clot burden. Vital Signs Vital signs: Vital Signs Temperature 97.5 F L 06/26/20 10:00 Pulse Rate 80 06/26/20 10:00 Respiratory Rate 16 06/26/20 10:00 Blood Pressure 152/73 H 06/26/20 10:00 Pulse Oximetry 100 06/26/20 10:00 Temperature 98.6 F 06/26/20 15:34 Pulse Rate 90 06/26/20 16:11 Respiratory Rate 16 10/23/20 15:34 Blood Pressure 157/80
[2020-06-26 10:57] LABS: NT Pro B Type Natriuretic Pept 443 PG/ML (5-100)
[2020-06-26 11:09] LABS: Add Urine Microscopic? NO; Appearance Urine Clear (Clear); Bilirubin Urine Negative (Negative); Blood Urine Negative (Negative); Color Urine Yellow (Yellow); Glucose Urine UA Negative (Negative); Ketones Urine Negative (Negative); Leukocyte Esterase Ur Negative LEU/UL (Negative); Nitrate Urine Negative (Negative); Protein Urine Negative (Negative); Specific Grav Ur 1.016 (1.001-1.035); Urobilinogen Urine Negative mg/dL (<2.0)
[2020-06-26 11:21] LABS: D Dimer > 20.00 ug/mL (<0.48)
[2020-06-26] MEDS: HEPARIN SOD/D5W 100 UNITS/ML 25,000 UNITS/250 ML BAG 9 UNITS IV CONT (13:44)
[2020-06-26] MEDS: DEXAMETHASONE SOD PHOS INJ 4 MG/ML VIAL 6 MG IV PUSH (13:44)
[2020-06-26] MEDS: HEPARIN SODIUM 5,000 UNITS/ML VIAL 4000 UNITS IV PUSH (13:44)
--- NOTE | 2020-06-26 15:18 | PC.NURSE ---
This patient, Heidy Easley, was admitted to Intensive Care Unit-1. Patient/family oriented to hospital policies and general routines including ID bracelet, bed and alarms, visiting hours, pain management, procedures, bathroom and other care routines, personal items, smoking policy, room service/diet, and visiting hours. Information on how to activate the Rapid Response Team has been discussed. Patient/Family are encouraged to report perceived risks to care and to ask questions if they do not understand what they are told or what they should do.
[2020-06-26] MEDS: SODIUM CHLORIDE 0.9% IV 1,000 ML 100 ML IV CONT (15:25)
--- NOTE | 2020-06-26 18:38 | PM.IMHP ---
H&P: HPI History of Present Illness Date/Time: 06/26/20 18:38 Chief complaint: pulmonary embolism,hypoxia,covid,dehydration Narrative: Heidy Easley is a 80 year old female Who has a history of schizophrenia. The patient was recently admitted here on 06/14/2020. She had a positive COVID test at that time. She was requiring 2 L of supplemental oxygen at that time. And from what I understand the patient did not go home with oxygen. The patient was had been at [facility] prior to her last admission. However the patient developed the UTI as well as the covid 19 and had multiple falls. She was not able to take care of herself and therefore was placed in a alf she was discharged on 06/17/2020. She she was at [facility] rehab. It was noted that the patient did have any further fever and only required 1 L of oxygen and was reduced to room air and was not requiring any oxygen when she was discharged. The patient stated that she developed a decubitus ulcer on her sacral area while she was in the alf. She is not very happy with her care that she is getting at the alf. The patient stated that she is very weak and cannot take care of herself. She said her arms feel very heavy and she can't lift her arms. Today the patient was admitted for shortness of breath. She was found to have an oxygen level in the 70s. She was placed on oxygen by EMS and brought to the facility. She has no chest pain. The alf was concerned about aspiration the patient has been coughing but states she has not eaten today. EKG was read as sinus rhythm. She had a CTA performed which was read as acute pulmonary emboli in the right lower lobe and right middle lobe. Mucus plugging in the right lower lobe. Right hilar lymphadenopathy which may be reactive. I initially started the patient on antiviral however I had a discussion with pharmacy who reviewed her renal function and it was not advisable to do the antiviral since she has been about 12 days since she was diagnosed. I am not sure if the hypoxia is due to her PE or the COVID. The patient was placed on a heparin drip and IV fluids since the patient appeared to be dry. She was placed in isolation and placed in IMU status although physically in ICU. She is admitted as inpatient. Date of service is 06/26/2020 Review of Systems Review of Systems: All systems reviewed & are unremarkable except as noted in HPI and below Constitutional: Constitutional: Reports as per HPI and Reports no additional constitutional complaints Eyes: Eyes: Reports as per HPI and Reports no additional eye complaints ENT: Reports system reviewed and no additional complaints, except as documented and Reports Normal hearing present Cardiovascular: Cardiovascular: Reports no additional cardiovascular complaints Respiratory: Respiratory: Reports no additional respiratory complaints and Reports no additional respiratory complaints Gastrointestinal: Gastrointestinal: Reports as per HPI and Reports no additional gastrointestinal complaints Musculoskeletal: Musculoskeletal: Reports no additional musculoskeletal complaints Integumentary/Breasts: Skin/Breast: Reports system reviewed and no additional complaints, except as docu and Reports as per HPI Neurologic: Reports system reviewed and no additional complaints, except as documented, Reports as per HPI and Reports Normal hearing present Psychiatric: Psychiatric: Reports no additional psychiatric complaints and Reports as per HPI Endocrine: Endocrine: Reports no additional endocrine complaints Hematologic/Lymphatic: Hematologic/Lymphatic: Reports no additional hematologic/lymphatic complaints Allergic/Immunologic: Allergic/Immunologic: Reports no additional allergic/immunologic complaints [facility] Past Medical History Medical History (Updated 06/26/20 @ 19:09 by Lillie Constantino NP) Anxiety COVID-19 Dementia Depression Duodena
[2020-06-26] MEDS: ARIPiprazole 2 MG TABLET PO (20:37)
[2020-06-26] MEDS: AZELASTINE HCL NASAL 0.1% 137 MCG/SPR 30 ML BTL 1 SPRAY NASAL (20:37)
[2020-06-26] MEDS: LATANOPROST 0.005% OP SOLN 2.5 ML BTL 1 DROP EACH EYE (20:38)
[2020-06-26] MEDS: clonazePAM (*CRX) 0.5 MG TABLET PO (20:46)
[2020-06-26] MEDS: BISACODYL 10 MG SUPPOSITORY RECTAL (21:07)
[2020-06-26 21:28] LABS: Partial Thromboplastin Time 193.9 SECONDS (22.3-36.8)
[2020-06-27] VITALS (13 sets, daily range): BP systolic 88–127; BP diastolic 48–69; PULSE 55–82; RESP 13–20; TEMP 36.3–36.8; O2SAT 87–97
[2020-06-27 05:38] LABS: Basophils Percent Auto 0.1 % (0.2-1.2); Hematocrit 35.4 % (37.0-47.0); Hemoglobin 11.5 g/dL (12.0-15.0); Immature Granulocyte Absolute 0.05 K/mm3 (0.00-0.031); Immature Granulocyte Percent A 0.6 % (0-0.5); Lymphocytes Percent Auto 10.1 % (18.3-44.2); Mean Corpuscular HGB Conc 32.5 g/dl (32-36); Mean Corpuscular Hemoglobin 31.5 pg (26-34); Mean Platelet Volume 10.1 fl (7.4-10.4); Monocytes Absolute Auto 0.5 K/mm3 (0.1-0.6); Monocytes Percent Auto 6.8 % (2.6-8.5); Neutrophils Absolute Auto 6.5 K/mm3 (1.3-6.7); Neutrophils Percent Auto 82.4 % (45.5-73.1); Platelet Count Result 312 k/mm3 (150-375); Red Blood Count 3.65 M/mm3 (4.2-5.4); Red Cell Distribution Width 12.1 % (11.5-14.5); White Blood Count 7.9 K/mm3 (4.5-10.0)
[2020-06-27 05:52] LABS: Partial Thromboplastin Time 102.9 SECONDS (22.3-36.8)
[2020-06-27 05:55] LABS: Alanine Aminotransferase 9 U/L (4-35); Albumin Level 3.2 g/dL (3.5-5.1); Alkaline Phosphatase 98 U/L (38-126); Anion Gap 9 mmol/L (8-16); Aspartate Amino Transferase 18 U/L (14-36); Bilirubin,Total 0.5 mg/dL (0.2-1.3); Blood Urea Nitrogen 34 mg/dL (7-17); Calcium 8.3 mg/dL (8.4-10.2); Carbon Dioxide 30 mmol/L (22-30); Chloride 100 mmol/L (98-107); Estimated CRCL calculation 31 ml/min; Estimated Glomerular Filt Rate 54; Glucose 135 mg/dL (65-105); Lactate Dehydrogenase 483 U/L (313-618); Magnesium 2.4 mg/dL (1.6-2.3); Potassium 3.6 mmol/L (3.4-5.0); Sodium 139 mmol/L (137-145)
[2020-06-27 07:08] LABS: Thyroid Stimulating Hormone Reflex 0.964 uIU/mL (0.465-4.68)
[2020-06-27] MEDS: clonazePAM (*CRX) 0.5 MG TABLET PO ×2 (08:30→20:07)
[2020-06-27] MEDS: AZELASTINE HCL NASAL 0.1% 137 MCG/SPR 30 ML BTL 1 SPRAY NASAL ×2 (08:30→18:05)
[2020-06-27] MEDS: CHOLECALCIFEROL 1,000 UNITS TABLET 1000 UNITS PO (08:31)
[2020-06-27] MEDS: LORATADINE 10 MG TABLET PO (08:31)
[2020-06-27] MEDS: guaiFENesin 600 MG/DEXTROMETHORPHAN 30 MG SR TAB 12 HR 1 TAB PO (08:31)
[2020-06-27] MEDS: miSOPROStol 200 MCG TABLET PO (08:31)
[2020-06-27] MEDS: DEXAMETHASONE SOD PHOS INJ 4 MG/ML VIAL 6 MG IV PUSH (08:32)
[2020-06-27] MEDS: SODIUM CHLORIDE 0.9% IV 1,000 ML 50 ML IV CONT (08:32)
[2020-06-27 11:32] LABS: Partial Thromboplastin Time 77.2 SECONDS (22.3-36.8)
--- NOTE | 2020-06-27 15:04 | PC.NURSE ---
This patient, Heidy Easley, was received from [ICU] on 06/27/20 at 1455. Personal belongings list checked and signed. Patient/family oriented to unit policies and routines
--- NOTE | 2020-06-27 15:28 | PC.NURSE ---
Pt transferred to room 328 via hospital bed, report given to RN. Chart and belongings with glasses and dentures sent with pt.
--- NOTE | 2020-06-27 15:53 | PM.IMPN ---
Progress Note: A&P Assessment and Plan (1) Pulmonary embolism: Code(s): I26.99 - Other pulmonary embolism without acute cor pulmonale Status: Acute Assessment and Plan: heparin drip per heparin protocol. Patient has hypoxic and requiring 4 L at this time.Pt will need to transition to coumadin, xarelto or eliquis tomorrow. Stable to transfer to medical floor (2) COVID-19: Code(s): U07.1 - COVID-19 Status: Acute Assessment and Plan: Patient is currently on Decadron. I had initially consider antiviral. However patient is GFR is on the borderline. (3) Hypoxia: Code(s): R09.02 - Hypoxemia Status: Acute Assessment and Plan: Patient is currently on 4 L per nasal cannula. She does have a PE in the right middle and right lower lobe. (4) Glaucoma: Code(s): H40.9 - Unspecified glaucoma Status: Chronic Assessment and Plan: Continue with patient's latanoprost (5) Dementia: Qualifiers: Dementia type: unspecified type Dementia behavioral disturbance: without behavioral disturbance Qualified Code(s): F03.90 - Unspecified dementia without behavioral disturbance Code(s): F03.90 - Unspecified dementia without behavioral disturbance Status: Acute Assessment and Plan: Continue with her medication for schizophrenia. (6) Hypertension: Qualifiers: Hypertension type: unspecified Qualified Code(s): I10 - Essential (primary) hypertension Code(s): I10 - Essential (primary) hypertension Status: Acute Assessment and Plan: Continue with patient home medication. (7) Schizophrenia: Qualifiers: Schizophrenia type: unspecified Qualified Code(s): F20.9 - Schizophrenia, unspecified Code(s): F20.9 - Schizophrenia, unspecified Status: Acute Assessment and Plan: Continue with the Zyprexa and clonazepam and Abilify (8) Anemia: Code(s): D64.9 - Anemia, unspecified Status: Acute Assessment and Plan: patient's H&H is 11.5. Patient had a past history of a perforated duodenal ulcer in the past. Subjective Date/time seen: 06/27/20 15:53 Interval history: Heidy Easley is a 80 year old female Who has a history of schizophrenia. The patient was recently admitted here on 06/14/2020. She had a positive COVID test at that time. She was requiring 2 L of supplemental oxygen at that time. pt is admitted this time with a pulmology embolism and is currently on 4 liters of oxygen. pt is stable to transfer to medical floor. Review of Systems Review of Systems: All systems reviewed & are unremarkable except as noted in HPI and below Exam Narrative: Exam Narrative: Temp Pulse Resp BP Pulse Ox 36.8 C 71 17 108/48 L 93 06/27/20 12:00 06/27/20 12:00 06/27/20 12:00 06/27/20 12:00 06/27/20 12:00 Const: General: cooperative, comfortable, no acute distress, well developed, alert and awake Nutritional Appearance: average body habitus and well nourished Orientation/consciousness: oriented to person Limitations: no limitations Objective Data Vital Signs Vital Signs: Vital Signs - 24 hr 06/26/20 16:00 06/26/20 16:11 06/26/20 18:00 Temperature Pulse Rate 75 90 80 Respiratory Rate Blood Pressure Pulse Oximetry 92 06/26/20 20:00 06/26/20 20:45 06/26/20 22:00 Temperature 36.3 C L Pulse Rate 66 74 69 Respiratory Rate 14 Blood Pressure 107/53 L Pulse Oximetry 94 93 06/27/20 00:00 06/27/20 00:15 06/27/20 02:00 Temperature 36.3 C L Pulse Rate 78 82 55 L Respiratory Rate 19 Blood Pressure 127/69 Pulse Oximetry 93 93 06/27/20 04:00 06/27/20 05:00 06/27/20 06:00 Temperature 36.8 C Pulse Rate 60 64 Respiratory Rate 15 Blood Pressure 88/52 L 102/50 L Pulse O
[2020-06-27 18:05] LABS: SARS-CoV-2 RNA PCR Positive
[2020-06-27] MEDS: HEPARIN SOD/D5W 100 UNITS/ML 25,000 UNITS/250 ML BAG 8 UNITS IV CONT (20:07)
[2020-06-28] VITALS (10 sets, daily range): BP systolic 120–153; BP diastolic 53–77; PULSE 37–86; RESP 16–22; TEMP 36.3–36.8; O2SAT 85–99
[2020-06-28] MEDS: ARIPiprazole 2 MG TABLET PO ×2 (00:22→19:59)
[2020-06-28] MEDS: LATANOPROST 0.005% OP SOLN 2.5 ML BTL 1 DROP EACH EYE ×2 (00:23→19:59)
[2020-06-28 06:35] LABS: Hematocrit 33.9 % (37.0-47.0); Hemoglobin 11.1 g/dL (12.0-15.0); Mean Corpuscular HGB Conc 32.7 g/dl (32-36); Mean Corpuscular Hemoglobin 31.9 pg (26-34); Mean Corpuscular Volume 97.4 fl (80-100); Mean Platelet Volume 9.7 fl (7.4-10.4); Platelet Count Result 352 k/mm3 (150-375); Red Blood Count 3.48 M/mm3 (4.2-5.4); Red Cell Distribution Width 12.4 % (11.5-14.5); White Blood Count 12.2 K/mm3 (4.5-10.0)
[2020-06-28 06:47] LABS: Partial Thromboplastin Time 69.3 SECONDS (22.3-36.8)
[2020-06-28 06:48] LABS: Alanine Aminotransferase 7 U/L (4-35); Anion Gap 10 mmol/L (8-16); Blood Urea Nitrogen 34 mg/dL (7-17); Calcium 8.1 mg/dL (8.4-10.2); Carbon Dioxide 22 mmol/L (22-30); Chloride 107 mmol/L (98-107); Estimated CRCL calculation 40 ml/min; Estimated Glomerular Filt Rate > 60; Glucose 105 mg/dL (65-105); Potassium 3.5 mmol/L (3.4-5.0); Sodium 139 mmol/L (137-145)
[2020-06-28] MEDS: ALBUTEROL SULFATE (*SP) INHALER 1 PUFF (06:54)
[2020-06-28] MEDS: ALBUTEROL SULFATE (*SP) AEROSOL 1 PUFF 2 PUFF INHALATION (06:54)
[2020-06-28] MEDS: SODIUM CHLORIDE 0.9% IV 1,000 ML 50 ML IV CONT (07:22)
[2020-06-28] MEDS: traMADol HCL (*CRX) 50 MG TABLET PO (07:23)
[2020-06-28] MEDS: HEPARIN SODIUM 5,000 UNITS/ML VIAL 2000 UNITS IV PUSH (07:23)
[2020-06-28] MEDS: AZELASTINE HCL NASAL 0.1% 137 MCG/SPR 30 ML BTL 1 SPRAY NASAL ×2 (09:01→16:54)
[2020-06-28] MEDS: CHOLECALCIFEROL 1,000 UNITS TABLET 1000 UNITS PO (09:02)
[2020-06-28] MEDS: LORATADINE 10 MG TABLET PO (09:03)
[2020-06-28] MEDS: miSOPROStol 200 MCG TABLET PO (09:03)
[2020-06-28] MEDS: guaiFENesin 600 MG/DEXTROMETHORPHAN 30 MG SR TAB 12 HR 1 TAB PO ×2 (09:04→20:03)
[2020-06-28] MEDS: DEXAMETHASONE SOD PHOS INJ 4 MG/ML VIAL 6 MG IV PUSH (09:11)
[2020-06-28] MEDS: clonazePAM (*CRX) 0.5 MG TABLET PO ×2 (09:11→19:58)
[2020-06-28] MEDS: MENTHOL 10% / METHYL SALICYLATE 15% 57 GM TUBE 1 APPLIC TOPICAL (11:28)
--- NOTE | 2020-06-28 15:12 | PM.IMPN ---
Progress Note: A&P Assessment and Plan (1) Pulmonary embolism: Code(s): I26.99 - Other pulmonary embolism without acute cor pulmonale Status: Acute Assessment and Plan: Heparin drip per heparin protocol. Patient has hypoxic and requiring 2 L at this time.Pt will need to transition to coumadin, xarelto or eliquis tomorrow. (2) COVID-19: Code(s): U07.1 - COVID-19 Status: Acute Assessment and Plan: Patient is currently on Decadron. I had initially consider antiviral. However patient is GFR is on the borderline. (3) Hypoxia: Code(s): R09.02 - Hypoxemia Status: Acute Assessment and Plan: Patient is currently on 2 L per nasal cannula. She does have a PE in the right middle and right lower lobe. (4) Glaucoma: Code(s): H40.9 - Unspecified glaucoma Status: Chronic Assessment and Plan: Continue with patient's latanoprost (5) Dementia: Qualifiers: Dementia type: unspecified type Dementia behavioral disturbance: without behavioral disturbance Qualified Code(s): F03.90 - Unspecified dementia without behavioral disturbance Code(s): F03.90 - Unspecified dementia without behavioral disturbance Status: Acute Assessment and Plan: Continue with her medication for schizophrenia. (6) Hypertension: Qualifiers: Hypertension type: unspecified Qualified Code(s): I10 - Essential (primary) hypertension Code(s): I10 - Essential (primary) hypertension Status: Acute Assessment and Plan: Continue with patient home medication. (7) Schizophrenia: Qualifiers: Schizophrenia type: unspecified Qualified Code(s): F20.9 - Schizophrenia, unspecified Code(s): F20.9 - Schizophrenia, unspecified Status: Acute Assessment and Plan: Continue with the Zyprexa and clonazepam and Abilify (8) Anemia: Code(s): D64.9 - Anemia, unspecified Status: Acute Assessment and Plan: patient's H&H is 11.5. Patient had a past history of a perforated duodenal ulcer in the past. Subjective Date/time seen: 06/28/20 15:12 Interval history: Heidy Easley is a 80 year old female Who has a history of schizophrenia. The patient was recently admitted here on 06/14/2020. She had a positive COVID test at that time. She was requiring 2 L of supplemental oxygen at that time. pt is admitted this time with a pulmology embolism and is currently on 2 liters of oxygen. Pts BC are positive. Pt is very tired coughing alot in the room. Feels unwell. Review of Systems Review of Systems: All systems reviewed & are unremarkable except as noted in HPI and below Exam Const: Limitations: no limitations Other: Frail elderly wet cough tired fatigued Resp: Effort & Inspection: normal respiratory effort GI: Other: Soft non tender Extrem: Other: No perpherial edema Objective Data Vital Signs Vital Signs: Vital Signs - 24 hr 06/27/20 16:00 06/27/20 20:00 06/27/20 20:25 Temperature 36.3 C L 36.4 C Pulse Rate 81 76 Respiratory Rate 18 20 Blood Pressure 119/68 118/61 Pulse Oximetry 91 87 L 92 06/28/20 00:00 06/28/20 04:00 06/28/20 06:30 Temperature 36.4 C Pulse Rate 76 53 L Respiratory Rate 20 Blood Pressure 121/60 Pulse Oximetry 97 85 L 06/28/20 06:35 06/28/20 07:00 06/28/20 08:00 Temperature 36.3 C L 36.3 C L Pulse Rate 82 86 Respiratory Rate 20 20 Blood Pressure 153/67 H 123/54 L Pulse Oximetry 96 95 93 06/28/20 12:00 Temperature 36.8 C Pulse Rate 57 L Respiratory Rate 18 Blood Pressure 120/53 L Pulse Oximetry 99 Intake/Output Intake/Output: Intake & Output 06/25/20 06/26/20 06/27/20 06/28/20 23:59 23:59 23:59 23:59 Intake Total 340 1760 1370 Output Total 550 0 Balance -210 1760 1370 Meds/Results Medications: Active Medications Generic Name Dose Route Start Last Admin Trade Name Freq PRN Reason Stop
[2020-06-28] MEDS: levoFLOXacin 500 MG/D5W 100 ML 500 MG/100 ML BAG 100 MG IVPB (18:55)
[2020-06-28 19:12] LABS: Partial Thromboplastin Time 148.8 SECONDS (22.3-36.8)
[2020-06-28] MEDS: HEPARIN SOD/D5W 100 UNITS/ML 25,000 UNITS/250 ML BAG 8 UNITS IV CONT (21:18)
[2020-06-29] VITALS: BP 144/74; PULSE 44; PULSE 72; RESP 16; TEMP 36.3; O2SAT 94
--- NOTE | 2020-06-29 | ECHO_ITS ---
Patient Info Name: Heidy Easley Age: 80 years : 1940 Gender: Female Ht: 63 in Wt: 120 lbs BSA: 1.56 m2 HR: 71 bpm BP: 150 / 75 mmHg Heart Rhythm: Sinus Rhythm Technical Quality: Good Exam Date: 06/29/2020 10:00 AM Exam Location: [facility] Patient Status: Inpatient Admit Date: 06/26/2020 Staff Ordering Physician: Kinjal Escobedo MD Box Truck Owner Operator: Jhonny Adams, RDCS, RT Attending Provider: Anuel Moreira MD Exam Type: CA echo doppler color flow Study Info Indications R06.02 - Shortness of breath Complete two-dimensional, color flow and Doppler transthoracic echocardiogram is performed. Strain analysis performed. Summary 1. Complete two-dimensional, color flow and Doppler transthoracic echocardiogram is performed. 2. Left ventricular systolic function is normal, estimated at 65-70%. 3. Left ventricular chamber dimension is normal. 4. Left atrial chamber dimension is moderately enlarged. 5. There is mild aortic valve regurgitation. 6. There is trace mitral valve regurgitation. Left Ventricle Left ventricular chamber dimension is normal. Left ventricular systolic function is normal, estimated at 65-70%. The left ventricular diastolic function is grade I diastolic dysfunction. Right Ventricle Right ventricular chamber dimension is normal. Left Atria Left atrial chamber dimension is moderately enlarged. Right Atria Right atrial chamber dimension is normal. Aortic Valve The aortic valve is normal. There is mild aortic valve regurgitation. Pulmonic Valve The pulmonic valve is not well visualized. Mitral Valve The mitral valve has normal leaflets. There is trace mitral valve regurgitation. Tricuspid Valve The tricuspid valve leaflets are normal. Pericardium/Pleural The pericardium appears normal. Aorta The aortic root size at the sinus of Valsalva is normal. Left Ventricular Outflow Tract Name Value Normal LVOT 2D LVOT Diameter 1.9 cm LVOT Doppler LVOT Peak Velocity 102 cm/s LVOT Peak Gradient 4 mmHg LVOT Mean Gradient 2 mmHg LVOT VTI 23 cm LVOT VTI/AV VTI Ratio 0.6 LVOT Stroke Volume 62 ml LVOT CO 4.2 l/min LVOT CI 2.7 l/min/m2 Mitral Valve Name Value Normal MV Doppler MV Decel [place] 589 cm/s2 MV PHT 51 ms MV Area (PHT) 4.4 cm2 4.0-5.0 MV Diastolic Function MV E Peak Velocity 103 cm/s MV A Peak Velocity 99 cm/s MV E/A
[2020-06-29] MEDS: traMADol HCL (*CRX) 50 MG TABLET PO (01:59)
[2020-06-29] MEDS: MENTHOL 10% / METHYL SALICYLATE 15% 57 GM TUBE 1 APPLIC TOPICAL (02:00)
[2020-06-29 02:23] LABS: Hematocrit 31.7 % (37.0-47.0); Hemoglobin 10.3 g/dL (12.0-15.0); Mean Corpuscular HGB Conc 32.5 g/dl (32-36); Mean Corpuscular Hemoglobin 30.7 pg (26-34); Mean Corpuscular Volume 94.6 fl (80-100); Mean Platelet Volume 9.9 fl (7.4-10.4); Platelet Count Result 334 k/mm3 (150-375); Red Blood Count 3.35 M/mm3 (4.2-5.4); Red Cell Distribution Width 12.2 % (11.5-14.5); White Blood Count 7.2 K/mm3 (4.5-10.0)
[2020-06-29 02:32] LABS: Alanine Aminotransferase 7 U/L (4-35)
[2020-06-29 02:33] LABS: Partial Thromboplastin Time 52.7 SECONDS (22.3-36.8)
[2020-06-29] MEDS: HEPARIN SODIUM 5,000 UNITS/ML VIAL 4000 UNITS IV PUSH (02:42)
[2020-06-29] MEDS: SODIUM CHLORIDE 0.9% IV 1,000 ML 50 ML IV CONT ×2 (03:09→20:54)
[2020-06-29 04:00] VITALS: BP 143/63; PULSE 48; PULSE 64; RESP 18; TEMP 36.7; O2SAT 95
[2020-06-29 08:00] VITALS: BP 150/71; PULSE 68; PULSE 70; RESP 18; TEMP 36.4; O2SAT 92
[2020-06-29] MEDS: AZELASTINE HCL NASAL 0.1% 137 MCG/SPR 30 ML BTL 1 SPRAY NASAL ×2 (09:16→16:01)
[2020-06-29] MEDS: guaiFENesin 600 MG/DEXTROMETHORPHAN 30 MG SR TAB 12 HR 1 TAB PO (09:19)
[2020-06-29] MEDS: DEXAMETHASONE SOD PHOS INJ 4 MG/ML VIAL 6 MG IV PUSH (09:20)
[2020-06-29] MEDS: CHOLECALCIFEROL 1,000 UNITS TABLET 1000 UNITS PO (09:20)
[2020-06-29] MEDS: clonazePAM (*CRX) 0.5 MG TABLET PO ×2 (09:20→20:55)
[2020-06-29] MEDS: miSOPROStol 200 MCG TABLET PO (09:22)
[2020-06-29] MEDS: LORATADINE 10 MG TABLET PO (09:22)
[2020-06-29 09:58] LABS: Partial Thromboplastin Time 131.5 SECONDS (22.3-36.8)
[2020-06-29 12:00] VITALS: BP 154/77; PULSE 61; PULSE 71; RESP 18; TEMP 36.5; O2SAT 94
[2020-06-29] MEDS: NYSTATIN 100,000 UNITS/ML SUSP 5 ML ORAL.SUSP PO ×3 (12:41→20:55)
[2020-06-29 12:52] VITALS: BMI 19.8
--- NOTE | 2020-06-29 15:10 | PC.NURSE ---
WOUNDS TAKEN AND DOWN LOADED, MEPLILES ON THE BUTTOCKS AND RT AND LT HEEL APPLIED
[2020-06-29 16:00] VITALS: BP 120/64; PULSE 63; PULSE 74; RESP 18; TEMP 36.4; O2SAT 98
[2020-06-29 16:32] LABS: Partial Thromboplastin Time 177.7 SECONDS (22.3-36.8)
--- NOTE | 2020-06-29 17:26 | PM.IMPN ---
Progress Note: A&P Assessment and Plan (1) Pulmonary embolism: Code(s): I26.99 - Other pulmonary embolism without acute cor pulmonale Status: Acute Assessment and Plan: Heparin drip per heparin protocol. Patient has hypoxic and requiring 2 L at this time.Pt will need to transition to coumadin, xarelto or eliquis tomorrow. 06/29/20 17:26 Patient is 80-year-old female recently discharged after patient was treated COVID-19 patient presented emergency department with a complaint of shortness of breath she is found to have pulmonary emboli as well as again patient is positive for COVID-19, this time patient is requiring 5 L of oxygen per nasal cannula, patient does not have any fever, patient is being treated with heparin drip will start the patient on Eliquis tomorrow, will continue to monitor and plan is to wean the patient off oxygen as much as possible before discharging to long-term (2) COVID-19: Code(s): U07.1 - COVID-19 Status: Acute Assessment and Plan: Patient is currently on Decadron. I had initially consider antiviral. However patient is GFR is on the borderline. (3) Hypoxia: Code(s): R09.02 - Hypoxemia Status: Acute Assessment and Plan: Patient is currently on 5 L per nasal cannula. She does have a PE in the right middle and right lower lobe. (4) Glaucoma: Code(s): H40.9 - Unspecified glaucoma Status: Chronic Assessment and Plan: Continue with patient's latanoprost (5) Dementia: Qualifiers: Dementia type: unspecified type Dementia behavioral disturbance: without behavioral disturbance Qualified Code(s): F03.90 - Unspecified dementia without behavioral disturbance Code(s): F03.90 - Unspecified dementia without behavioral disturbance Status: Acute Assessment and Plan: Continue with her medication for schizophrenia. (6) Hypertension: Qualifiers: Hypertension type: unspecified Qualified Code(s): I10 - Essential (primary) hypertension Code(s): I10 - Essential (primary) hypertension Status: Acute Assessment and Plan: Continue with patient home medication. (7) Schizophrenia: Qualifiers: Schizophrenia type: unspecified Qualified Code(s): F20.9 - Schizophrenia, unspecified Code(s): F20.9 - Schizophrenia, unspecified Status: Acute Assessment and Plan: Continue with the Zyprexa and clonazepam and Abilify (8) Anemia: Code(s): D64.9 - Anemia, unspecified Status: Acute Assessment and Plan: patient's H&H is 11.5. Patient had a past history of a perforated duodenal ulcer in the past. Subjective Date/time seen: 06/29/20 17:26 Patient is 80-year-old female recently discharged after patient was treated COVID-19 patient presented emergency department with a complaint of shortness of breath she is found to have pulmonary emboli as well as again patient is positive for COVID-19, this time patient is requiring 5 L of oxygen per nasal cannula, patient does not have any fever, patient is being treated with heparin drip will start the patient on Eliquis tomorrow, will continue to monitor and plan is to wean the patient off oxygen as much as possible before discharging to long-term Review of Systems Review of Systems: All systems reviewed & are unremarkable except as noted in HPI and below Exam Narrative: Exam Narrative: elderly frail appears chronically ill Patient is comfortable, NAD HEENT: there are no retraction LUNGS: normal respiratory effort ABD: not distended Lower extremities: no edema SKIN: nonjaundiced Neuro: normal speech. Objective Data Vital Signs Vital Signs: Vital Signs - 24 hr 06/28/20 20:00 06/28/20 21:00 06/29/20 00:00 Temperature 97.5 F L 97.4 F L Pulse Rate 62 37 L 72 Respiratory Rate 18 16 Blood Pressure 140/77 144/74 H Pulse Oximetry 97 98 94 06/29/20 04:00
[2020-06-29] MEDS: levoFLOXacin 500 MG/D5W 100 ML 500 MG/100 ML BAG 100 MG IVPB (18:11)
[2020-06-29 20:00] VITALS: BP 152/87; PULSE 65; PULSE 67; RESP 22; TEMP 36.7; O2SAT 93
[2020-06-29] MEDS: LATANOPROST 0.005% OP SOLN 2.5 ML BTL 1 DROP EACH EYE (20:55)
[2020-06-29] MEDS: ARIPiprazole 2 MG TABLET PO (20:55)
[2020-06-30] VITALS (14 sets, daily range): BP systolic 106–175; BP diastolic 57–82; PULSE 42–99; RESP 16–20; TEMP 36.3–37.3; O2SAT 92–98
[2020-06-30 00:40] LABS: Partial Thromboplastin Time 107.4 SECONDS (22.3-36.8)
[2020-06-30] MEDS: HEPARIN SOD/D5W 100 UNITS/ML 25,000 UNITS/250 ML BAG IV CONT (01:02)
--- NOTE | 2020-06-30 04:18 | ECG_ITS ---
Measurements Intervals [place] Rate: 77 P: 52 [place]: 136 QRS: 26 QRSD: 81 T: 46 QT: 390 QTc: 442 Interpretive Statements SINUS RHYTHM BASELINE ARTIFACT- I, II, III, AVR, AVL, AVF, V1-V2 NORMAL ECG Electronically Signed On 06-30-2020 7:01:39 CDT by Jacob Solomon D.O.
[2020-06-30] MEDS: hydrALAZINE HCL 20 MG/ML VIAL 10 MG IV PUSH (05:23)
[2020-06-30 07:21] LABS: Hematocrit 34.3 % (37.0-47.0); Hemoglobin 11.2 g/dL (12.0-15.0); Mean Corpuscular HGB Conc 32.7 g/dl (32-36); Mean Corpuscular Hemoglobin 31.1 pg (26-34); Mean Corpuscular Volume 95.3 fl (80-100); Platelet Count Result 369 k/mm3 (150-375); Red Cell Distribution Width 12.2 % (11.5-14.5); White Blood Count 6.7 K/mm3 (4.5-10.0)
[2020-06-30 07:35] LABS: Partial Thromboplastin Time 91.5 SECONDS (22.3-36.8)
[2020-06-30 07:59] LABS: Alanine Aminotransferase 8 U/L (4-35); Anion Gap 6 mmol/L (8-16); Blood Urea Nitrogen 16 mg/dL (7-17); Calcium 8.3 mg/dL (8.4-10.2); Carbon Dioxide 29 mmol/L (22-30); Chloride 110 mmol/L (98-107); Estimated CRCL calculation 53 ml/min; Estimated Glomerular Filt Rate > 60; Glucose 90 mg/dL (65-105); Sodium 145 mmol/L (137-145)
[2020-06-30] MEDS: NYSTATIN 100,000 UNITS/ML SUSP 5 ML ORAL.SUSP PO ×4 (09:09→20:25)
[2020-06-30] MEDS: miSOPROStol 200 MCG TABLET PO (09:09)
[2020-06-30] MEDS: guaiFENesin 600 MG/DEXTROMETHORPHAN 30 MG SR TAB 12 HR 1 TAB PO ×2 (09:09→20:25)
[2020-06-30] MEDS: AZELASTINE HCL NASAL 0.1% 137 MCG/SPR 30 ML BTL 1 SPRAY NASAL ×2 (09:10→18:11)
[2020-06-30] MEDS: CHOLECALCIFEROL 1,000 UNITS TABLET 1000 UNITS PO (09:10)
[2020-06-30] MEDS: DEXAMETHASONE SOD PHOS INJ 4 MG/ML VIAL 6 MG IV PUSH (09:10)
[2020-06-30] MEDS: LORATADINE 10 MG TABLET PO (09:10)
[2020-06-30] MEDS: APIXABAN 5 MG TABLET 10 MG PO ×2 (09:11→20:25)
[2020-06-30] MEDS: ACETAMINOPHEN 325 MG TABLET 650 MG PO ×2 (09:13→12:47)
[2020-06-30] MEDS: clonazePAM (*CRX) 0.5 MG TABLET PO ×2 (09:13→20:28)
--- NOTE | 2020-06-30 17:04 | PM.IMPN ---
Progress Note: A&P Assessment and Plan (1) Pulmonary embolism: Code(s): I26.99 - Other pulmonary embolism without acute cor pulmonale Status: Acute Assessment and Plan: Heparin drip per heparin protocol. Patient has hypoxic and requiring 2 L at this time.Pt will need to transition to coumadin, xarelto or eliquis tomorrow. 06/30/20 17:04 Patient is 80-year-old female recently discharged after patient was treated COVID-19 patient presented emergency department with a complaint of shortness of breath she is found to have pulmonary emboli as well as again patient is positive for COVID-19, this time patient was requiring 5 L of oxygen per nasal cannula, patient does not have any fever, patient was treated with heparin drip will start the patient on Eliquis today, patient does not have any fever, patient is now requiring 4 L of oxygen, is feeling much better not a short of breath, will continue to monitor and plan is to wean the patient off oxygen as much as possible before [facility] to jail (2) COVID-19: Code(s): U07.1 - COVID-19 Status: Acute Assessment and Plan: Patient is currently on Decadron. I had initially consider antiviral. However patient is GFR is on the borderline. (3) Hypoxia: Code(s): R09.02 - Hypoxemia Status: Acute Assessment and Plan: Patient is currently on 5 L per nasal cannula. She does have a PE in the right middle and right lower lobe. (4) Glaucoma: Code(s): H40.9 - Unspecified glaucoma Status: Chronic Assessment and Plan: Continue with patient's latanoprost (5) Dementia: Qualifiers: Dementia behavioral disturbance: without behavioral disturbance Dementia type: unspecified type Qualified Code(s): F03.90 - Unspecified dementia without behavioral disturbance Code(s): F03.90 - Unspecified dementia without behavioral disturbance Status: Acute Assessment and Plan: Continue with her medication for schizophrenia. (6) Hypertension: Qualifiers: Hypertension type: unspecified Qualified Code(s): I10 - Essential (primary) hypertension Code(s): I10 - Essential (primary) hypertension Status: Acute Assessment and Plan: Continue with patient home medication. (7) Schizophrenia: Qualifiers: Schizophrenia type: unspecified Qualified Code(s): F20.9 - Schizophrenia, unspecified Code(s): F20.9 - Schizophrenia, unspecified Status: Acute Assessment and Plan: Continue with the Zyprexa and clonazepam and Abilify (8) Anemia: Code(s): D64.9 - Anemia, unspecified Status: Acute Assessment and Plan: patient's H&H is 11.5. Patient had a past history of a perforated duodenal ulcer in the past. Subjective Date/time seen: 06/30/20 17:04 Patient is 80-year-old female recently discharged after patient was treated COVID-19 patient presented emergency department with a complaint of shortness of breath she is found to have pulmonary emboli as well as again patient is positive for COVID-19, this time patient was requiring 5 L of oxygen per nasal cannula, patient does not have any fever, patient was treated with heparin drip will start the patient on Eliquis today, patient does not have any fever, patient is now requiring 4 L of oxygen, is feeling much better not a short of breath, will continue to monitor and plan is to wean the patient off oxygen as much as possible before discharging to jail Review of Systems Review of Systems: All systems reviewed & are unremarkable except as noted in HPI and below Exam Narrative: Exam Narrative: elderly frail appears chronically ill Patient is comfortable, NAD HEENT: there are no retraction LUNGS: normal respiratory effort ABD: not distended Lower extremities: no edema SKIN: nonjaundiced Neuro: normal speech. Objective Data Vital Signs Vital Signs: Vital Signs
[2020-06-30] MEDS: levoFLOXacin 500 MG/D5W 100 ML 500 MG/100 ML BAG 100 MG IVPB (18:14)
[2020-06-30] MEDS: SODIUM CHLORIDE 0.9% IV 1,000 ML 50 ML IV CONT (18:18)
[2020-06-30] MEDS: ALBUTEROL SULFATE (*SP) AEROSOL 1 PUFF 2 PUFF INHALATION (19:36)
[2020-06-30] MEDS: LATANOPROST 0.005% OP SOLN 2.5 ML BTL 1 DROP EACH EYE (20:25)
[2020-06-30] MEDS: ARIPiprazole 2 MG TABLET PO (20:25)
[2020-07-01] VITALS (8 sets, daily range): BP systolic 114–169; BP diastolic 46–94; PULSE 52–86; RESP 18–20; TEMP 36.4–36.6; O2SAT 92–97
[2020-07-01] MEDS: traMADol HCL (*CRX) 50 MG TABLET PO ×2 (02:59→20:03)
[2020-07-01 06:29] LABS: Hematocrit 32.6 % (37.0-47.0); Hemoglobin 10.7 g/dL (12.0-15.0); Mean Corpuscular HGB Conc 32.8 g/dl (32-36); Mean Corpuscular Hemoglobin 31.3 pg (26-34); Mean Corpuscular Volume 95.3 fl (80-100); Mean Platelet Volume 9.6 fl (7.4-10.4); Platelet Count Result 381 k/mm3 (150-375); Red Blood Count 3.42 M/mm3 (4.2-5.4); Red Cell Distribution Width 12.4 % (11.5-14.5); White Blood Count 7.8 K/mm3 (4.5-10.0)
[2020-07-01 06:45] LABS: Anion Gap 4 mmol/L (8-16); Blood Urea Nitrogen 18 mg/dL (7-17); Calcium 8.2 mg/dL (8.4-10.2); Carbon Dioxide 28 mmol/L (22-30); Chloride 110 mmol/L (98-107); Estimated CRCL calculation 53 ml/min; Estimated Glomerular Filt Rate > 60; Glucose 97 mg/dL (65-105); Potassium 3.9 mmol/L (3.4-5.0); Sodium 142 mmol/L (137-145)
[2020-07-01] MEDS: NYSTATIN 100,000 UNITS/ML SUSP 5 ML ORAL.SUSP PO ×4 (09:39→20:04)
[2020-07-01] MEDS: DEXAMETHASONE SOD PHOS INJ 4 MG/ML VIAL 6 MG IV PUSH (09:39)
[2020-07-01] MEDS: APIXABAN 5 MG TABLET 10 MG PO ×2 (09:40→20:03)
[2020-07-01] MEDS: CHOLECALCIFEROL 1,000 UNITS TABLET 1000 UNITS PO (09:40)
[2020-07-01] MEDS: guaiFENesin 600 MG/DEXTROMETHORPHAN 30 MG SR TAB 12 HR 1 TAB PO ×2 (09:40→20:03)
[2020-07-01] MEDS: LORATADINE 10 MG TABLET PO (09:40)
[2020-07-01] MEDS: clonazePAM (*CRX) 0.5 MG TABLET PO ×2 (09:40→20:03)
[2020-07-01] MEDS: AZELASTINE HCL NASAL 0.1% 137 MCG/SPR 30 ML BTL 1 SPRAY NASAL ×2 (09:40→17:31)
[2020-07-01] MEDS: miSOPROStol 200 MCG TABLET PO (09:40)
--- NOTE | 2020-07-01 09:50 | P.CDI_ITS ---
CDI Query Clarification Request Blood cultures collected on admission, 06/26/20 have grown 2/2 coag negative staphylococcus. Please clarify any clinical significance of the positive blood cultures. <GABRIELA Delatorre - Last Filed: 07/01/20 09:54> Clarified Diagnosis (1) Bacteremia: Code(s): R78.81 - Bacteremia <GABRIELA Delatorre - Last Filed: 07/01/20 09:54> Status: Acute <GABRIELA Delatorre - Last Filed: 07/01/20 09:54> Assessment and Plan: Coagulase negative staphylococci are part of normal human skin wood most likely contamination as patient remained clinically stable there was no mayte vated white count, no fever and no signs or symptoms of sepsis. <Kinjal Escobedo MD - Last Filed: 07/15/20 18:35>
[2020-07-01] MEDS: ACETAMINOPHEN 325 MG TABLET 650 MG PO (10:01)
[2020-07-01] MEDS: SODIUM CHLORIDE 0.9% IV 1,000 ML 50 ML IV CONT (13:14)
--- NOTE | 2020-07-01 16:45 | PM.IMPN ---
Progress Note: A&P Assessment and Plan (1) Pulmonary embolism: Code(s): I26.99 - Other pulmonary embolism without acute cor pulmonale Status: Acute Assessment and Plan: Heparin drip per heparin protocol. Patient has hypoxic and requiring 2 L at this time.Pt will need to transition to coumadin, xarelto or eliquis tomorrow. 07/01/20 16:45 Patient is 80-year-old female recently discharged after patient was treated COVID-19 patient presented emergency department with a complaint of shortness of breath she is found to have pulmonary emboli as well as again patient is positive for COVID-19, patient had a cardiac echo systolic function is normal with ejection fraction 60% and right ventricle and normal dimension with no pulmonary hypertension, this time patient was requiring 5 L of oxygen per nasal cannula, patient does not have any fever, patient was treated with heparin drip and started the patient on Eliquis on 06/30, today patient is sitting in the chair, patient does not have any fever, patient was now requiring 4 L of oxygen, today weaned her off to RA and her oxygen saturations are above 90s and is feeling much better not a short of breath, The patient has remained clinically stable will discharge the patient back to group home tomorrow. (2) COVID-19: Code(s): U07.1 - COVID-19 Status: Acute Assessment and Plan: Patient is currently on Decadron. I had initially consider antiviral. However patient is GFR is on the borderline. (3) Hypoxia: Code(s): R09.02 - Hypoxemia Status: Acute Assessment and Plan: Patient is currently on 5 L per nasal cannula. She does have a PE in the right middle and right lower lobe. (4) Glaucoma: Code(s): H40.9 - Unspecified glaucoma Status: Chronic Assessment and Plan: Continue with patient's latanoprost (5) Dementia: Qualifiers: Dementia behavioral disturbance: without behavioral disturbance Dementia type: unspecified type Qualified Code(s): F03.90 - Unspecified dementia without behavioral disturbance Code(s): F03.90 - Unspecified dementia without behavioral disturbance Status: Acute Assessment and Plan: Continue with her medication for schizophrenia. (6) Hypertension: Qualifiers: Hypertension type: unspecified Qualified Code(s): I10 - Essential (primary) hypertension Code(s): I10 - Essential (primary) hypertension Status: Acute Assessment and Plan: Continue with patient home medication. (7) Schizophrenia: Qualifiers: Schizophrenia type: unspecified Qualified Code(s): F20.9 - Schizophrenia, unspecified Code(s): F20.9 - Schizophrenia, unspecified Status: Acute Assessment and Plan: Continue with the Zyprexa and clonazepam and Abilify (8) Anemia: Code(s): D64.9 - Anemia, unspecified Status: Acute Assessment and Plan: patient's H&H is 11.5. Patient had a past history of a perforated duodenal ulcer in the past. Subjective Date/time seen: 07/01/20 16:45 Patient is 80-year-old female recently discharged after patient was treated COVID-19 patient presented emergency department with a complaint of shortness of breath she is found to have pulmonary emboli as well as again patient is positive for COVID-19, patient had a cardiac echo systolic function is normal with ejection fraction 60% and right ventricle and normal dimension with no pulmonary hypertension, this time patient was requiring 5 L of oxygen per nasal cannula, patient does not have any fever, patient was treated with heparin drip and started the patient on Eliquis on 06/30, today patient is sitting in the chair, patient does not have any fever, patient was now requiring 4 L of oxygen, today weaned her off to RA and her oxygen saturations are above 90s and is feeling much better not a short of breath, The patient has remained clinicall
[2020-07-01] MEDS: levoFLOXacin 500 MG/D5W 100 ML 500 MG/100 ML BAG 100 MG IVPB (17:31)
[2020-07-01] MEDS: ARIPiprazole 2 MG TABLET PO (20:03)
[2020-07-01] MEDS: LATANOPROST 0.005% OP SOLN 2.5 ML BTL 1 DROP EACH EYE (20:04)
[2020-07-02] VITALS (8 sets, daily range): BP systolic 113–209; BP diastolic 53–92; PULSE 45–85; RESP 16–20; TEMP 36.6–36.7; O2SAT 95–96
[2020-07-02] MEDS: hydrALAZINE HCL 20 MG/ML VIAL 10 MG IV PUSH (05:56)
[2020-07-02 06:34] LABS: Hematocrit 32.5 % (37.0-47.0); Hemoglobin 10.2 g/dL (12.0-15.0); Mean Corpuscular HGB Conc 31.4 g/dl (32-36); Mean Corpuscular Hemoglobin 30.7 pg (26-34); Mean Corpuscular Volume 97.9 fl (80-100); Mean Platelet Volume 9.5 fl (7.4-10.4); Platelet Count Result 339 k/mm3 (150-375); Red Blood Count 3.32 M/mm3 (4.2-5.4); Red Cell Distribution Width 12.6 % (11.5-14.5); White Blood Count 6.8 K/mm3 (4.5-10.0)
[2020-07-02 06:55] LABS: Anion Gap 5 mmol/L (8-16); Blood Urea Nitrogen 17 mg/dL (7-17); Carbon Dioxide 27 mmol/L (22-30); Chloride 108 mmol/L (98-107); Estimated CRCL calculation 46 ml/min; Estimated Glomerular Filt Rate > 60; Glucose 109 mg/dL (65-105); Potassium 4.1 mmol/L (3.4-5.0); Sodium 140 mmol/L (137-145)
[2020-07-02] MEDS: LORATADINE 10 MG TABLET PO (09:10)
[2020-07-02] MEDS: clonazePAM (*CRX) 0.5 MG TABLET PO (09:10)
[2020-07-02] MEDS: NYSTATIN 100,000 UNITS/ML SUSP 5 ML ORAL.SUSP PO ×3 (09:10→18:05)
[2020-07-02] MEDS: miSOPROStol 200 MCG TABLET PO (09:10)
[2020-07-02] MEDS: CHOLECALCIFEROL 1,000 UNITS TABLET 1000 UNITS PO (09:10)
[2020-07-02] MEDS: APIXABAN 5 MG TABLET 10 MG PO (09:10)
[2020-07-02] MEDS: AZELASTINE HCL NASAL 0.1% 137 MCG/SPR 30 ML BTL 1 SPRAY NASAL ×2 (09:10→18:05)
[2020-07-02] MEDS: DEXAMETHASONE SOD PHOS INJ 4 MG/ML VIAL 6 MG IV PUSH (09:10)
[2020-07-02] MEDS: SODIUM CHLORIDE 0.9% IV 1,000 ML 50 ML IV CONT (09:16)
--- NOTE | 2020-07-02 14:04 | PM.DS ---
DS: Admitting Diagnosis Admitting Diagnosis Admitting Diagnosis: pulmonary embolism,hypoxia,covid,dehydration DS: Discharge Diagnosis Discharge Diagnosis (1) Pulmonary embolism: Code(s): I26.99 - Other pulmonary embolism without acute cor pulmonale Status: Acute Assessment and Plan: Heparin drip per heparin protocol. Patient has hypoxic and requiring 2 L at this time.Pt will need to transition to coumadin, xarelto or eliquis tomorrow. 07/01/20 16:45 Patient is 80-year-old female recently discharged after patient was treated COVID-19 patient presented emergency department with a complaint of shortness of breath she is found to have pulmonary emboli as well as again patient is positive for COVID-19, patient had a cardiac echo systolic function is normal with ejection fraction 60% and right ventricle and normal dimension with no pulmonary hypertension, this time patient was requiring 5 L of oxygen per nasal cannula, patient does not have any fever, patient was treated with heparin drip and started the patient on Eliquis on 06/30, today patient is sitting in the chair, patient does not have any fever, patient was now requiring 4 L of oxygen, on 07/01 weaned her off to RA and her oxygen saturations are above 90s and is feeling much better not a short of breath, The patient has remained clinically stable will discharge the patient back to intermediate tomorrow. (2) COVID-19: Code(s): U07.1 - COVID-19 Status: Acute Assessment and Plan: Patient is currently on Decadron. I had initially consider antiviral. However patient is GFR is on the borderline. (3) Hypoxia: Code(s): R09.02 - Hypoxemia Status: Acute Assessment and Plan: Patient is currently on 5 L per nasal cannula. She does have a PE in the right middle and right lower lobe. (4) Glaucoma: Code(s): H40.9 - Unspecified glaucoma Status: Chronic Assessment and Plan: Continue with patient's latanoprost (5) Dementia: Qualifiers: Dementia type: unspecified type Dementia behavioral disturbance: without behavioral disturbance Qualified Code(s): F03.90 - Unspecified dementia without behavioral disturbance Code(s): F03.90 - Unspecified dementia without behavioral disturbance Status: Acute Assessment and Plan: Continue with her medication for schizophrenia. (6) Hypertension: Qualifiers: Hypertension type: unspecified Qualified Code(s): I10 - Essential (primary) hypertension Code(s): I10 - Essential (primary) hypertension Status: Acute Assessment and Plan: Continue with patient home medication. (7) Schizophrenia: Qualifiers: Schizophrenia type: unspecified Qualified Code(s): F20.9 - Schizophrenia, unspecified Code(s): F20.9 - Schizophrenia, unspecified Status: Acute Assessment and Plan: Continue with the Zyprexa and clonazepam and Abilify (8) Anemia: Code(s): D64.9 - Anemia, unspecified Status: Acute Assessment and Plan: patient's H&H is 11.5. Patient had a past history of a perforated duodenal ulcer in the past. DS: Summary Hospital Course Reason for hospitalization: Chief complaint: Falls, UTI, NH Placement, PT Evaluation Narrative: This is a demented 78 year old female who likely has chronic heart failure as she is treated with lasix presented to the hospital yesterday with a complaint of #3 falls over the past day. She was complianing of left hip pain in the ER. Apparently the patient slipped off of a chair when she was calling out for help and no one came to help her. The patient is currently residing at an assisted living facility and her daughter had verbalized to the ER staff yesterday that she wanted to have the patient placed in a intermediate. On my encounter with the patient there is no family present and the patient is only oriented to herself. When
[2020-07-02] MEDS: levoFLOXacin 500 MG/D5W 100 ML 500 MG/100 ML BAG 100 MG IVPB (18:05)
== END 2020-07-02 18:45 | DRG 175 ==
LOC: ANHED 10:20 → ANHICU 15:07 → ANH3MEDSUR 06-28 01:50 → ANHICU 07-06 17:29
PROVIDERS: Family Medicine; Nurse Practitioner; Admitting Provider Internal Medicine; Emergency Provider Emergency Medicine; PCP Family Medicine Adolescent Medicine; Visit Provider Family Medicine
DX: I26.99 Other pulmonary embolism without acute cor pulmonale (principal); U07.1 COVID-19; R09.02 Hypoxemia; M19.90 Unspecified osteoarthritis, unspecified site; F41.8 Other specified anxiety disorders; F03.90 Unspecified dementia, unspecified severity, without behavioral disturbance, psychotic disturbance, mood disturbance, and anxiety; F20.9 Schizophrenia, unspecified; I11.0 Hypertensive heart disease with heart failure; I50.9 Heart failure, unspecified; E86.0 Dehydration; D64.9 Anemia, unspecified; H40.9 Unspecified glaucoma; Z87.891 Personal history of nicotine dependence; B95.7 Other staphylococcus as the cause of diseases classified elsewhere
CPT/HCPCS: 36415; 36600; 51701; 71045; 71275; 80048; 80053; 81003; 82728; 82805; 83605; 83615; 83735; 83880; 84443; 84460; 85025; 85027; 85380; 85610; 85730; 87040; 87077; 87186; 87635; 93005; 93306; 94640; 96365; 96366; 96367; 96375; 97110; 97116; 97161; 97530; 99291; A9270; C9803; J0131; J0360; J1100; J1644; J1956; J7030; Q9967; U0003